=== PATIENT | female | born 1940 | race Caucasian/White ===

== ENCOUNTER 2016-10-07 07:51 | Inpatient (IN) | payer OTHER, MEDICARE ==
--- NOTE | 2016-10-06 15:34 | HP ---
DATE OF ADMISSION: 10/07/2016 DATE OF SURGERY: 10/08/2016 DATE OF DICTATION: 09/29/2016 REASON FOR ADMISSION: Left colon mass, suspect carcinoma. BRIEF HISTORY: This is a 76-year-old female who in July underwent a colonoscopy for microcytic anemia. At the time of colonoscopy, she was noted to have a large mass in the proximal sigmoid/left colon. The mass was approximately 30 cm. Due to the size of this mass and near obstructing nature, the remainder of the colon is not examined, and the procedure was terminated at this level. Biopsies were taken, biopsies consistent with tubulovillous adenoma. No carcinoma identified. Due to the microcytic anemia, she also underwent an upper endoscopy that was essentially unremarkable except for gastritis. A CAT scan was performed. The CT demonstrated a 4.5-cm mass in the sigmoid/left colon suggestive of a carcinoma with compression onto the bladder and invasion into the bladder cannot be entirely ruled out. There is no obvious intestinal obstruction. The CT demonstrated no obvious findings in the liver. The CT was performed at [facility] in [address], and CT Was read by Dr. Kaia Dumont. The colonoscopy was performed by Dr. Saul Bonds. Patient has a family history of colon cancer (mom at age 92). She has had approximately 20 pounds weight loss over the past 6 months, slow progression. PAST MEDICAL HISTORY: Significant for coronary artery disease, arthritic changes, back problems, anxiety disorder, hypertension. PAST SURGICAL HISTORY: Kyphoplasty in 2010. ALLERGIES: None. MEDICATION: Crestor, ramipril, metoprolol 25 mg daily, baby aspirin, ibuprofen, alprazolam 0.25 mg on a p.r.n. basis. SOCIAL HISTORY: Patient does not smoke nor drink. PHYSICAL EXAMINATION: Abdomen: Soft. Nontender. Nondistended. No obvious abdominal scars. Lungs: Clear. Heart: Regular rhythm. IMPRESSION/PLAN: Colonic mass: This is a 76-year-old female who underwent colonoscopy for microcytic anemia. Upper endoscopy is unremarkable. Colonoscopy demonstrated a mass at approximately 30 to 35 cm from the anal verge. Biopsies and brushings were taken and consistent with tubulovillous adenoma. CT scan confirmed this finding with possible invasion into the dome of the bladder. The area was not tattooed at the time of surgery. Remainder of the colon was not evaluated. The patient and family and myself had a very long conversation regarding the possibility of carcinoma (in a tubulovillous adenoma there is at least a 40% chance). We have also discussed the possibility if this was carcinoma, of having a synchronous tumor of approximately 7% chance in the remainder of the colon. They understand this, and given the fact that she is partially obstructed, at least endoscopically, the pros of a barium enema are outweighed by the possibility of barium and converting this to a complete large bowel obstruction; therefore, they did not wish to have the remainder of the colon evaluated at this time and understand the 7% synchronicity chance for carcinoma if this is a cancer. Given the fact that the patient is partially obstructed endoscopically, I have also planned to prep her very slowly over a course of 4 days. The day prior to surgery, the patient will be admitted for a formal bowel prep and IV hydration in the hospital. The indications, alternatives, complications of procedure have been discussed at length. Questions have been answered. Will plan to obtain written consent on the day of surgery. Rishi MATHEWS [id number] cc: Jaylen Quintana M.D., [address] [place] [phone] ) cc: Nicko Samaniego M.D. [facility]
[2016-10-07 10:34] LABS: MCH 30.1 pg (25.7-33.7); MCHC 33.7 g/dl (32.0-36.0); MEAN CELL VOLUME 89.3 fl (80-96); PLATELET COUNT 311 K/MM3 (134-434); RDW 13.5 % (11.6-15.6); WHITE BLOOD COUNT 6.2 K/mm3 (4.0-10.0)
[2016-10-07] MEDS ORDERED: ERTAPENEM SODIUM 1 GM in SODIUM CHLORIDE 50 ML IVPB ONE (10:45)
[2016-10-07 10:50] LABS: ALBUMIN 3.4 g/dl (3.4-5.0); ANION GAP 8 (8-16); CALCIUM 9.3 mg/dL (8.5-10.1); CO2 27 mmol/L (21-32); CREATININE 0.6 mg/dL (0.55-1.02); GLUCOSE,RANDOM 94 mg/dL (74-106); SGOT/AST 23 U/L (15-37); SGPT/ALT 24 U/L (12-78)
[2016-10-07 10:52] LABS: ALK PHOS 72 U/L (45-117); BILIRUBIN,TOTAL 0.4 mg/dL (0.2-1.0); TOT PROT 6.3 g/dl (6.4-8.2)
[2016-10-07] MEDS ORDERED: PEG 3350/NA SULF BICARB CL/KCL 4000 ML SOLN.RECON PO ONE (11:00)
[2016-10-07 11:33] VITALS: BMI 20.1
[2016-10-07] MEDS: LACTATED RINGERS SOLUTION 1,000 ML IV SCH (11:54)
[2016-10-08] MEDS: LACTATED RINGERS SOLUTION 1,000 ML IV SCH (00:39)
[2016-10-08] MEDS ORDERED: PT OWN MED DRAWER 7, Y5N ONE (07:39)
[2016-10-08] MEDS ORDERED: MIDAZOLAM HCL 2 MG/2 ML SINGLE DOSE VIAL ONE ×2 (07:40→11:27)
[2016-10-08] MEDS ORDERED: ROCURONIUM BROMIDE 50 MG/5 ML VIAL ONE ×2 (07:41→09:16)
[2016-10-08] MEDS ORDERED: PROPOFOL 20 ML ONE (07:41)
[2016-10-08] MEDS ORDERED: ERTAPENEM SODIUM 1 GM in SODIUM CHLORIDE 50 ML IVPB ONE (08:00)
[2016-10-08] MEDS ORDERED: GlUCAGON HUMAN RECOMBINANT 1 MG/VIAL ONE (08:13)
[2016-10-08] MEDS ORDERED: ERTAPENEM SODIUM 1 GM/50 ML PRE-DOCKED IVPB ONE (08:27)
[2016-10-08] MEDS ORDERED: DEXAMETHASONE SOD PHOSPHATE 4 MG/1 ML VIAL ONE (10:00)
[2016-10-08] MEDS ORDERED: ASPIRIN 81 MG CHEWABLE TABLETS PO SCH (10:00)
[2016-10-08] MEDS ORDERED: METOPROLOL TARTRATE 50 MG TABLET (FP) PO SCH (10:00)
[2016-10-08] MEDS ORDERED: RAMIPRIL 2.5 MG CAPSULE (FP) PO SCH (10:00)
[2016-10-08] MEDS ORDERED: METOPROLOL TARTRATE 5 MG/5 ML VIAL ONE (10:01)
[2016-10-08] MEDS ORDERED: LIDOCAINE HCL 2% JELLY (5 ML/TUBE) ONE (10:01)
[2016-10-08] MEDS ORDERED: LIDOCAINE HCL/PF 2% SDV 5ML VIAL ONE (10:01)
[2016-10-08] MEDS ORDERED: GLYCOPYRROLATE 0.2 MG/1 ML VIAL ONE ×2 (10:01→11:46)
[2016-10-08] MEDS ORDERED: ePHEDrine SULFATE 50 MG/1 ML AMPULE ONE (10:58)
[2016-10-08] MEDS ORDERED: NEOSTIGMINE METHYLSULFATE 0.5 MG/ML - 10 ML MDV ONE (11:46)
[2016-10-08] MEDS ORDERED: oxyCODONE HCL 5 MG TABLET PO PRN (12:05)
[2016-10-08] MEDS ORDERED: D5-1/2NS+20 MEQ KCL - 1,000 ML IV SCH (12:15)
[2016-10-08] MEDS ORDERED: ESMOLOL HCL 10 ML ONE (12:48)
[2016-10-08] MEDS ORDERED: ONDANSETRON 4 MG/2 ML VIAL IVPUSH PRN (14:47)
[2016-10-08] MEDS ORDERED: ALBUTEROL SO4 0.083% IH SOL 2.5 MG/3 ML VIAL.NEB. NEB PRN (14:54)
--- NOTE | 2016-10-08 17:29 | OP ---
DATE OF OPERATION: DATE OF DICTATION: 10/08/2016 PREOPERATIVE DIAGNOSIS: Colon mass. POSTOPERATIVE DIAGNOSIS: Colon mass. PROCEDURE: Cystoscopy left ureteral stent placement preoperatively for laparoscopic colon resection. INDICATION: Patient is a 76-year-old female with large colon mass adherent to left lateral wall bladder. I was asked to put left ureteral stent in preoperatively by Dr. Zimmer. This was discussed with the patient preoperatively and informed consent was given. DESCRIPTION OF PROCEDURE: Patient was brought to OR. After general anesthesia was established, placed in the dorsal lithotomy position. The cystoscope was introduced without difficulty and the bladder was visualized. There was some erythema of the left lateral wall of the bladder. The bilateral ureteral orifices were seen in normal anatomic position. Attention turned to left ureteral orifice, intubated with ureteral catheter contrast, retrograde pyelogram, no hydronephrosis noted. A ureteral catheter went up into the renal pelvis and the cystoscope was then removed, Hernandez catheter then placed, and then open-end ureteral catheter was secured to the Hernandez catheter for preoperative left ureteral identification. At this point then I un-scrubbed and Dr. Zimmer scrubbed in for his part of the procedure. ASHUTOSH SANDHU M.D. [id number]
[2016-10-08] MEDS: morphine CARPU-JECT 4 MG/1 ML DISP.SYRIN IVPB PRN ×2 (17:53→22:15)
[2016-10-08 18:46] LABS: MCH 30.1 pg (25.7-33.7); MCHC 33.6 g/dl (32.0-36.0); MEAN CELL VOLUME 89.7 fl (80-96); MEAN PLT VOLUME 8.5 fl (7.5-11.1); PLATELET COUNT 308 K/MM3 (134-434); RDW 13.8 % (11.6-15.6); WHITE BLOOD COUNT 12.2 K/mm3 (4.0-10.0)
[2016-10-08 19:11] LABS: ANION GAP 8 (8-16); CALCIUM 8.4 mg/dL (8.5-10.1); CO2 27 mmol/L (21-32); GLUCOSE,RANDOM 163 mg/dL (74-106)
[2016-10-08 19:12] LABS: CREATININE 0.5 mg/dL (0.55-1.02)
--- NOTE | 2016-10-08 20:30 | CONSULT ---
Consult Consult Specialty:: Pulmonary/ Critical Care Referred by:: Nahid Zimmer Reason for Consultation:: s/p colon resection, frontal colectomy - History of Present Illness Chief Complaint: s/p colon resection, frontal colectomy History of Present Illness: HPI: 76 y/o woman who was recently diagnosed with large colon mass now admitted to ICU post-op ureteral stent placement and laparoscopic colon resection. Briefly, pt was undergoing work up for microcytic anemia and had colonoscopy earlier this month. During the procedure she was noted to have a large mass ( 30cm) which was partially obstructive and the exam was terminated. Biopsies were taken, consistent with tubulovillous adenoma. She also underwent upper endoscopy which was essentially unremarkable other than gastritis. CT demonstrated a 4.5cm mass in the sigmoid/ left colon suggestive of a carcinoma with compression onto the bladder and concern for invasion into the bladder. Pt presented today for surgical intervention. Pt underwent L ureteral stent placement pre-operatively by Dr. Allen and subsequently laparoscopic colon resection by Dr. Zimmer. Operative course was unremarkable and pt was discharged to PACU where she was extubated to NRB. She was admitted to ICU for further monitoring. Active Medications Albuterol Sulfate (Ventolin 0.083% Nebulizer Soln -) 1 amp NEB Q4H PRN PRN Reason: SHORT OF BREATH/WHEEZING Last Admin: 10/08/16 15:10 Dose: 1 amp Aspirin (Asa -) 81 mg PO DAILY [facility] Enoxaparin Sodium (Lovenox -) 40 mg SQ DAILY [facility] Fentanyl (Sublimaze Injection -) 50 mcg IVPUSH [id number] PRN PRN Reason: PAIN Stop: 10/11/16 14:48 Ertapenem 1 gm/ Sodium (Chloride) 50 mls @ 50 mls/hr IVPB ONCE ONE PRN Reason: Protocol Stop: 10/09/16 06:59 Pantoprazole Sodium 40 mg/ (Sodium Chloride) 100 mls @ 200 mls/hr IVPB DAILY [facility] Potassium Chloride/Dextrose/Sod Cl (D5-1/2ns+20 Meq Kcl -) 1,000 mls @ 100 mls/ hr IV ASDIR JOHN Last Admin: 10/08/16 17:45 Dose: 100 mls/hr Metoprolol Tartrate (Lopressor -) 50 mg PO DAILY [facility] Morphine Sulfate (Morphine Injection -) 4 mg IVPB Q3H PRN PRN Reason: MODERATE PAIN Last Admin: 10/08/16 17:53 Dose: 4 mg Oxycodone HCl (Roxicodone -) 7.5 mg PO Q4H PRN PRN Reason: PAIN Ramipril (Altace -) 2.5 mg PO DAILY JOHN - History Source History Provided By: Patient, Medical Record Limitations to Obtaining History: No Limitations - Past Medical History Cardio/Vascular: Yes: CAD, HTN ...: No Psych: Yes: Anxiety Musculoskeletal: Yes: Other (back pain, arthritis) Rheumatology: Yes: Other - Past Surgical History Additional Surgical History: kyphoplasty 2010 - Alcohol/Substance Use Hx Alcohol Use: No - Smoking History Smoking history: Former smoker Have you smoked in the past 12 months: No If you are a former smoker, when did you quit?: quit 20 yrs ago Home Medications - Allergies Allergies/Adverse Reactions: Allergies Allergy/AdvReac Type Severity Reaction Status Date / Time No Known Allergies Allergy Verified 10/07/16 10:32 - Home Medications Home Medications: Ambulatory Orders Alprazolam 0.25 tab PO PRN 10/07/16 Aspirin [Asya Chewable Aspirin] 10/07/16 Ibuprofen 10/07/16 Metoprolol Succinate 50 tab PO DAILY 10/07/16 Metoprolol Tartrate 10/07/16 Ramipril 2.5 cap PO DAILY 10/07/16 Rosuvastatin [Crestor -] 20 mg PO DAILY 10/07/16 Family Disease History - Family Disease History Family Disease History: Other: Mother (colon cancer) Review of Systems - Review of Systems Constitutional: reports: Unintentional Wgt. Loss Physical Exam Vital Signs: Vital Signs Temperature 98.9 F 10/08/16 20:00 Pulse Rate 97 H 10/08/16 20:00 Respiratory Rate 13 10/08/16 20:00 Blood Pressure 103/58 10/08/16 20:00 O2 Sat by Pulse Oximetry (%) 95 10/08/16 19:30 Constitutional: Yes: No Distress, Calm Eyes: Yes: Conjunctiva Clear, PERRL HENT: Yes: Normocephalic Cardiovascular: Yes: Regular Rate and Rhythm, S1, S2, Other (mild tachycardia). No: Gallop, Murmur, Rub Respiratory: Yes: CTA Bilaterally, Other (faint basilar crackles). No: Accessory Muscle Use Gastrointestinal: Yes: Soft (abdominal incisions c/d/i), Hypoactive Bowel Sounds , Tenderness Extremities: Yes: WNL Edema: No Peripheral Pulses WNL: Yes Integumentary: Yes: WNL Wound/Incision: Yes: Clean/Dry, Well Approximated, Sutures Intact, Open to air, Dressing Dry and Intact Neurological: Yes: WNL, Cran Nerves II-XII Intact ...Motor Strength: WNL Psychiatric: Yes: WNL Labs: CBC, BMP 10/08/16 18:15 10/08/16 18:15 Problem List - Problems (1) S/P colon resection Code(s): Z90.49 - ACQUIRED ABSENCE OF OTHER SPECIFIED PARTS OF DIGESTIVE TRACT Assessment/Plan Assessment/ Plan: 76 y/o woman who was recently diagnosed with large colon mass now admitted to ICU post-op ureteral stent placement and laparoscopic colon resection. -post-op monitoring -pain control as needed -wound care -s/p monse-op erdapenem - monitor for sxs infection -O2 via NRB- wean as tolerated -monitor respiratory status -continue IVF -continue anti-HTN -continue ASA, statin -ppx: lovenox, PPI Sharla MURPHY CC time: 35 mins
[2016-10-09] MEDS: morphine CARPU-JECT 4 MG/1 ML DISP.SYRIN IVPB PRN ×6 (02:36→21:35)
[2016-10-09 05:47] LABS: MCH 29.7 pg (25.7-33.7); MEAN PLT VOLUME 7.9 fl (7.5-11.1); PLATELET COUNT 310 K/MM3 (134-434); RDW 13.8 % (11.6-15.6)
[2016-10-09] MEDS ORDERED: PT OWN MED DRAWER 7, Y5N ONE (05:52)
[2016-10-09] MEDS ORDERED: ERTAPENEM SODIUM 1 GM in SODIUM CHLORIDE 50 ML IVPB ONE (06:00)
[2016-10-09 06:11] LABS: ANION GAP 7 (8-16); CALCIUM 8.5 mg/dL (8.5-10.1); CO2 28 mmol/L (21-32); CREATININE 0.5 mg/dL (0.55-1.02); GLUCOSE,RANDOM 126 mg/dL (74-106); MAGNESIUM 1.8 mg/dL (1.8-2.4); PHOSPHOROUS 3.5 mg/dL (2.5-4.9)
[2016-10-09] MEDS: METOPROLOL TARTRATE 50 MG TABLET (FP) PO SCH (09:05)
[2016-10-09] MEDS: ASPIRIN 81 MG CHEWABLE TABLETS PO SCH (09:05)
[2016-10-09] MEDS: RAMIPRIL 2.5 MG CAPSULE (FP) PO SCH (09:05)
[2016-10-09] MEDS: PANTOPRAZOLE SODIUM 100 ML IVPB SCH (09:10)
--- NOTE | 2016-10-09 10:36 | PN ---
Progress Note (short form) - Note Progress Note: Anesthesia postop note 76 y/o F with multiple medical problems, s/p GA for Laparoscopic colectomy/ anastomosis, cystoscopy/stents Slow to recover at at end of the procedure, extubated in recovery room, respiratory status felt to be inadequate for discharging patient to regular floor. Patient admitted to ICU overnight for close monitoring. POD#1, vss overnight, now on nasal cannula, O2sat low 90's, hemodynamically stable, aaox3, some lower abdomen discomfort. Encouraged to use incentive spirometry. Further care per ICU/surgery.
--- NOTE | 2016-10-09 11:43 | PN ---
Teaching Attending Note Name of Resident: Raheem Canales ATTENDING PHYSICIAN STATEMENT I saw and evaluated the patient. I reviewed the resident's note and discussed the case with the resident. I agree with the resident's findings and plan as documented. SUBJECTIVE: Patient seen and examined in the ICU. Awake and alert. Mildly tachypneic at rest on 6 L NC O2 (was on 100% yesterday). Reports mild abdominal discomfort. (+) flatus. No CP . Some dry cough. Intake & Output 10/06/16 10/07/16 10/08/16 10/09/16 23:59 23:59 23:59 23:59 Intake Total 800 3575 1250 Output Total 1105 475 Balance 800 2470 775 Weight 121 lb 131 lb Last Vital Signs Temp Pulse Resp BP Pulse Ox 98.0 F 90 18 90/47 90 L 10/09/16 10:00 10/09/16 10:00 10/09/16 10:00 10/09/16 10:00 10/09/16 08:00 Active Medications Albuterol Sulfate (Ventolin 0.083% Nebulizer Soln -) 1 amp NEB Q4H PRN PRN Reason: SHORT OF BREATH/WHEEZING Last Admin: 10/08/16 15:10 Dose: 1 amp Aspirin (Asa -) 81 mg PO DAILY [facility] Last Admin: 10/09/16 09:05 Dose: Not Given Enoxaparin Sodium (Lovenox -) 40 mg SQ DAILY [facility] Fentanyl (Sublimaze Injection -) 50 mcg IVPUSH [id number] PRN PRN Reason: PAIN Stop: 10/11/16 14:48 Pantoprazole Sodium (Protonix 40mg Ivpb (Pre-Docked)) 100 mls @ 200 mls/hr IVPB DAILY [facility] Last Admin: 10/09/16 09:10 Dose: 200 mls/hr Metoprolol Tartrate (Lopressor -) 50 mg PO DAILY [facility] Last Admin: 10/09/16 09:05 Dose: Not Given Morphine Sulfate (Morphine Injection -) 4 mg IVPB Q3H PRN PRN Reason: MODERATE PAIN Last Admin: 10/09/16 09:29 Dose: 4 mg Oxycodone HCl (Roxicodone -) 7.5 mg PO Q4H PRN PRN Reason: PAIN Ramipril (Altace -) 2.5 mg PO DAILY [facility] Last Admin: 10/09/16 09:05 Dose: Not Given Constitutional: Yes: Awake and alert, mildly tachypenic at rest Eyes: Yes: Conjunctiva Clear, PERRL HENT: Yes: Normocephalic Cardiovascular: Yes: Regular Rate and Rhythm, S1, S2, Other (mild tachycardia). No: Gallop, Murmur, Rub Respiratory: Yes: scattered basilar rhonchi. No: Accessory Muscle Use Gastrointestinal: Yes: Soft (abdominal incisions c/d/i), Hypoactive Bowel Sounds , Tenderness Extremities: Yes: WNL Edema: No Peripheral Pulses WNL: Yes Integumentary: Yes: WNL Wound/Incision: Yes: Clean/Dry, Well Approximated, Sutures Intact, Open to air, Dressing Dry and Intact Neurological: Yes: Non-focal ...Motor Strength: WNL Psychiatric: Yes: WNL Labs: Laboratory Results - last 24 hr 10/08/16 10/08/16 10/09/16 18:15 18:15 05:10 WBC 12.2 H D 9.0 RBC 3.72 3.67 Hgb 11.2 10.9 Hct 33.4 33.0 MCV 89.7 90.0 MCH 30.1 29.7 MCHC 33.6 33.0 RDW 13.8 13.8 Plt Count 308 310 MPV 8.5 7.9 Sodium 141 Potassium 3.8 Chloride 106 Carbon Dioxide 27 Anion Gap 8 BUN 4 L Creatinine 0.5 L Random Glucose 163 H D Calcium 8.4 L Phosphorus Magnesium 10/09/16 05:10 WBC RBC Hgb Hct MCV MCH MCHC RDW Plt Count MPV Sodium 141 Potassium 4.0 Chloride 106 Carbon Dioxide 28 Anion Gap 7 L BUN 5 L D Creatinine 0.5 L Random Glucose 126 H D Calcium 8.5 Phosphorus 3.5 Magnesium 1.8 Problem List - Problems (1) S/P colon resection Code(s): Z90.49 - ACQUIRED ABSENCE OF OTHER SPECIFIED PARTS OF DIGESTIVE TRACT Assessment/Plan Mild Pulmonary Vascular Congestion Colonic Mass -> CA S/P Ureteral stent placement S/P Laparoscopic colon resection. -Check CXR -Pain control as needed -Wound care -Currently monitoring off ABX -O2 as needed to maintain saturation -Decrease IVF -ASA -Lovenox -PPI Dr Romero Critical Care Total Critical Care Time (in minutes): 35 Critical Care Statement: The care of this patient involved high complexity decision making to prevent further life threatening deterioration of the patient 's condition and/or to evalute & treat vital organ system(s) failure or risk of failure.
[2016-10-09] MEDS: D5-1/2NS+20 MEQ KCL - 1,000 ML IV SCH (12:00)
--- NOTE | 2016-10-09 12:17 | OP ---
DATE OF OPERATION: 10/08/2016 PREOPERATIVE DIAGNOSIS: Sigmoid mass, suspect colon cancer with invasion into the bladder, abdominal wall, and uterus. POSTOPERATIVE DIAGNOSIS: Sigmoid mass, suspect colon cancer with invasion into the bladder, abdominal wall, and uterus. PROCEDURE: Laparoscopic low anterior resection, laparoscopic resection of portion of bladder and uterus, laparoscopic resection of portion of abdominal wall, splenic flexure takedown, anal dilatation, rigid sigmoidoscopy, peritoneal lavage. SURGEON: Nahid Zimmer MD FAMILY SERVICE CASEWORKER: Petey Bailey DO ANESTHESIA: Vandana Flaherty MD (general). ESTIMATED BLOOD LOSS: Minimal. SPECIMEN: Rectosigmoid portion of bladder, uterus, and abdominal wall. MEDICAL COMORBIDITIES: Ischemic heart disease; colonic mass, suspect cancer; hypercholesterolemia; mitral valve prolapse syndrome; iron deficiency anemia. INDICATIONS FOR PROCEDURE: This is a 76-year-old female who underwent colonoscopy for microcytic anemia. At the time of scoping, she was noted to have an untraversable mass at [address] scan was performed. It demonstrated a large, 5 -cm mass consistent with colonoscopic findings. The mass looks like it invades the bladder as well. There is no obvious metastatic disease to liver. The patient is here today for the above procedure. Given the CT findings, I sent the patient to see a urologist who underwent preoperative cystoscopy. Cystoscopy demonstrated no obvious invasion of tumor into the dome of the bladder. There was some mild erythema in the upper corner, lateral wall of the left side of the bladder. The urologist also placed stents today on the left side. DESCRIPTION OF PROCEDURE: Patient identified and appropriately positioned on the operating room table. After placement of general anesthesia, the abdomen prepped and draped in the usual sterile fashion with ChloraPrep. The patient was placed in the lithotomy position, and the urologist placed a stent into the left ureter. Please refer to his dictation. Once this was completed, the patient then appropriately positioned for the low anterior resection. The abdomen prepped with ChloraPrep. The perineum prepped with Betadine. A supraumbilical incision was made and deepened through the subcutaneous tissue. The fascia was divided sharply, peritoneum incised, and the abdomen was entered. Upon entering the abdomen, a Veress needle was placed under direct vision, followed by an 11-mm port. The remaining ports placed under direct vision as well. The patient was placed into a mild Trendelenburg position for the duration of the operation. There was a large mass identified in the mid-sigmoid/proximal rectum that was adherent to the lateral abdominal wall, bladder as well as what appeared to be the uterus and tube and ovary. There were no obvious peritoneal implants. The liver appeared to be grossly within normal limits. However, the posterior aspects of the liver were not able to be evaluated laparoscopically, and also the central portion obviously could not be evaluated. The pelvic brim identified. The sigmoid vessels identified in the fat. The sigmoid vessels were circumferentially isolated and taken with LigaSure device. Four weldsplaced prior to complete division. Once this was accomplished, the retroperitoneum was then subsequently opened, and in doing so, the ovarian vessels as well as the left ureter identified and the iliac artery. Those retroperitoneal structures were left in the retroperitoneum, and the plane was not violated. The peritoneal reflection medially on the left colon was then divided sharply. The posterior retroperitoneal side of the colon was lifted off the retroperitoneum with blunt dissection as well up against the left gutter. At this point, the colon was rolled medially, and the white line of Toldt was divided sharply and the 2 planes connected. This was then taken down towards the level of the pelvis, and in doing so, there was obvious tumor that was adherent to the left anterior abdominal wall. The peritoneum along the abdominal wall where it was affixed was divided en bloc along with the specimen to be removed, and then, the dissection ensued more inferiorly. The peritoneal reflection on the patient's left side was identified , and the tube and ovary were pulled into this mass, but there was no obvious infiltration on the tube and ovary, and therefore, the tube and ovary were sharply off the tumor mass itself. The mass had clearly grown into the portion of the corner of the uterus on the left as well as the anterior surface of the bladder laterally. The peritoneum along the bladder was then scored, and a portion of the bladder was resected en bloc along with the tumor specimen. The piece of bladder that was removed went beyond the actual tumor invasion. Then, coming across the uterus, it was done in a similar fashion, and across the uterus, the uterus was sharply divided and cauterized as needed. Once the tumor was completely freed and an en bloc resection of portion of the abdominal wall/uterus was performed, attention was now focused to closure and oversewing of the uterine horn. This was done with a 2-0 V-Loc dissolvable suture. The mucosa of the bladder was not violated. The muscular layer of the bladder was then oversewn with interrupted 2-0 chromic sutures. Once the bladder and uterus was reconstructed, attention now focused to performing the actual resection of the tumor. The peritoneal reflection on the patient's right side was scored, and the preperitoneal space entered, and the rectum was then mobilized out of the preperitoneal space with blunt dissection. The superior hemorrhoidal/rectal arteries were divided with the cautery. This allowed adequate distal margin. The middle rectals did not need to be sacrificed. The fat at the site of distal transection was visualized, and the fat in the posterior aspect of the mesorectum was divided with the cautery. Next, the colon was then freed off the white line of Toldt sharply, and in doing so, the left colon was brought down to the pelvis. However, to perform a tension-free anastomosis, the splenic flexure required takedown. The splenic flexure was taken down in the standard fashion with the cautery and LigaSure as needed. The renocolic, splenocolic, and gastrocolic ligaments were divided. Next, there was still some hang-up of the left colon to be brought down, and the peritoneal reflection overlying the GIACOMO on either side was completely divided. This allowed the GIACOMO to still be left intact and the left colon be mobilized as distal as possible to perform a tension-free anastomosis. Once blood supply and attachments were adequately mobilized, attention was now brought to bringing the specimen out. The 5-mm trocar site suprapubically was removed. The incision had to be lengthened significantly to remove this large bulky tumor that was at least 5-6 cm. The fascia of the rectus muscle was divided transversely, and using the Pfannenstiel technique, the peritoneum identified, incised, and the abdomen again entered through this incision. A wound protector placed and the specimen was brought out through this incision. At the proximal line, the resection was chosen to be several inches, at least 5 inches, above the actual tumor. A colotomy proximally was made, and a 28 anvil placed under direct vision. The colon proximally was then subsequently stapled, and under direct vision, the anvil spike was brought through the transverse aspect of the staple line. The anvil was sewn with a 3-0 Prolene pursestring suture. The spike subsequently removed. The bowel returned to its anatomic position. The surgeon and exceptional children teacher assistant changed gloves. The exceptional children teacher assistant now went below to perform an anal dilatation to 3 fingerbreadths. The rectal stump was serially dilated up to from small, medium, and large, and under direct vision, a stapler was then placed as well. The stapler brought to the rectal stump staple line, spike through the central aspect of the staple line, the 2 ends mated under direct vision, and the stapler fired. The exceptional children teacher assistant reported good donuts on both sides. The distal donut was sent for an additional distal margin. The staple line grossly was intact. Grossly, the bowel was pink proximal and distal to the anastomosis, and there was no gross staple breaks. At this point, the patient was injected with cyanine green, and using the pinpoint system, the anastomosis was checked. There was good blood supply to the anastomosis and on either side of the anastomosis. There was no evidence of ischemia using the pinpoint. Next, the pelvis was irrigated. The irrigant retrieved. The operative field was hemostatic. The exceptional children teacher assistant performed a limited rigid sigmoidoscopy by insufflating air. The staple line submerged, and there were no air leaks. The staple line was tested on 3 separate accounts. There were no air leaks identified. The exceptional children teacher assistant performed a rigid sigmoidoscopy to the anastomosis. The anastomosis was pink on either side. There were no buckner staple breaks. Next, the ports removed. Port sites were removed under direct vision and noted to be hemostatic. A 10 flat NATHAN was placed and brought through the left lower quadrant port site. The fascia at the 12 port site and supraumbilical was reapproximated with interrupted 0 Vicryl suture. All skin closed with jovani, followed by Dermabond. At the conclusion of this case, sponge and needle counts were correct. ATTESTATION: A brief operative note handwritten on the preprinted form. [facility] will be queried prior to giving narcotics. Rishi MATHEWS [id number] CC: Nicko MD Servando Samaniego MD Leon Landau, MD Dr. DeLuca [facility]ITALK[facility]
--- NOTE | 2016-10-09 13:25 | PN ---
Progress Note (short form) - Note Progress Note: surgery pt seen and examined. feels well. events noted. spent night in ICU with lethargy and shortness of breath. ivf dropped to 42 per hour and felt to have mild fluid overload. afebrile abd- soft, mild distension, incision clean, kostas serous Laboratory Tests 10/09/16 05:10 WBC 9.0 Hgb 10.9 Plt Count 310 A/P 1) Pod#1- npo, ivf per critical care, cont kostas, cont hardy, cont stent 2) prophylaxis- finish invanz, cont protonix, lovenox, oob, spirometer 3) htn/cad- on home meds-- ramapril, altace, asa 4) likely colon ca-follow path 5) bladder involvement of tumor- cont hardy and stent per gu, may need assessment prior to removal
[2016-10-09] MEDS: ENOXAPARIN NA (PORCINE) 40 MG/0.4 ML DISP.SYRIN SQ SCH (13:59)
--- NOTE | 2016-10-09 14:31 | PN ---
Physical Exam: SUBJECTIVE: Pt stated her pain has been mostly under control. Had shortness of breath briefly. No fever, chills, chest pain, n/v, urinary or bowel symptom. OBJECTIVE: Vital Signs Period Temp Pulse Resp BP Sys/Garland Pulse Ox Last 24 Hr 98.0 F-98.9 F 79-106 12-20 86-121/42-71 90-96 GENERAL: AAO x 3, and fully oriented, in no acute distress. LUNGS: Decreased breath sounds bilaterally HEART: Tachycardic, S1, S2 without murmur, rub or gallop. ABDOMEN: Soft, diffusely tender, mildly distended, normoactive bowel sounds, no guarding, no rebound; dressing in RLQ, clean horizontal surgical jovani, and lap scars EXTREMITIES: no edema. CBCD WBC 9.0 K/mm3 (4.0-10.0) 10/09/16 05:10 RBC 3.67 M/mm3 (3.60-5.2) 10/09/16 05:10 Hgb 10.9 GM/dL (10.7-15.3) 10/09/16 05:10 Hct 33.0 % (32.4-45.2) 10/09/16 05:10 MCV 90.0 fl (80-96) 10/09/16 05:10 MCHC 33.0 g/dl (32.0-36.0) 10/09/16 05:10 RDW 13.8 % (11.6-15.6) 10/09/16 05:10 Plt Count 310 K/MM3 (134-434) 10/09/16 05:10 MPV 7.9 fl (7.5-11.1) 10/09/16 05:10 CMP Sodium 141 mmol/L (136-145) 10/09/16 05:10 Potassium 4.0 mmol/L (3.5-5.1) 10/09/16 05:10 Chloride 106 mmol/L (98-107) 10/09/16 05:10 Carbon Dioxide 28 mmol/L (21-32) 10/09/16 05:10 Anion Gap 7 (8-16) L 10/09/16 05:10 BUN 5 mg/dL (7-18) L D 10/09/16 05:10 Creatinine 0.5 mg/dL (0.55-1.02) L 10/09/16 05:10 Creat Clearance w eGFR > 60 (>60) 10/07/16 10:00 Calcium 8.5 mg/dL (8.5-10.1) 10/09/16 05:10 Total Bilirubin 0.4 mg/dL (0.2-1.0) 10/07/16 10:00 AST 23 U/L (15-37) 10/07/16 10:00 ALT 24 U/L (12-78) 10/07/16 10:00 Alkaline Phosphatase 72 U/L (45-117) 10/07/16 10:00 Total Protein 6.3 g/dl (6.4-8.2) L 10/07/16 10:00 Albumin 3.4 g/dl (3.4-5.0) 10/07/16 10:00 Intake & Output 10/06/16 10/07/16 10/08/16 10/09/16 23:59 23:59 23:59 23:59 Intake Total 800 3575 1950 Output Total 1105 870 Balance 800 2470 1080 Weight 54.885 kg 59.421 kg IMAGING CXR on 10/09: small pleural effusion ASSESSMENT/PLAN: 76 yo F s/p colon mass and colon resection and post-op ureteral stent placement admitted to the ICU for post-op management. 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 current pain management - Incentive spirometer - OOB - NPO for now FEN - D5+1/2NS+20meg at 42ml/hr - Normal lytes - NPO Prophylaxis - DVT: On lovenox (AM dose held due to risk of bleeding post-op) - GI: protonix Dispo - Cont. to monitor in ICU Visit type - Emergency Visit Emergency Visit: No - New Patient This patient is new to me today: Yes Date on this admission: 10/10/16 - Critical Care Critical Care patient: Yes Total Critical Care Time (in minutes): 25
[2016-10-10] MEDS: morphine CARPU-JECT 4 MG/1 ML DISP.SYRIN IVPB PRN ×3 (02:08→19:39)
[2016-10-10 05:50] LABS: MCH 30.2 pg (25.7-33.7); MCHC 33.7 g/dl (32.0-36.0); MEAN CELL VOLUME 89.7 fl (80-96); MEAN PLT VOLUME 8.5 fl (7.5-11.1); PLATELET COUNT 257 K/MM3 (134-434); WHITE BLOOD COUNT 6.9 K/mm3 (4.0-10.0)
[2016-10-10 06:12] LABS: ANION GAP 4 (8-16); CALCIUM 8.3 mg/dL (8.5-10.1); CO2 32 mmol/L (21-32); CREATININE 0.4 mg/dL (0.55-1.02); GLUCOSE,RANDOM 105 mg/dL (74-106); MAGNESIUM 1.8 mg/dL (1.8-2.4)
--- NOTE | 2016-10-10 08:47 | PN ---
Progress Note (short form) - Note Progress Note: Patient seen and examined in the ICU. Awake and alert. Less tachypneic at rest on NC O2. Less abdominal discomfort. No subjective flatus or BM. No CP . Some dry cough. Intake & Output 10/07/16 10/08/16 10/09/16 10/10/16 23:59 23:59 23:59 23:59 Intake Total 800 3575 2504 344 Output Total 1105 1530 725 Balance 800 2470 974 -381 Weight 121 lb 131 lb 126 lb 9 oz Last Vital Signs Temp Pulse Resp BP Pulse Ox 97.7 F 96 H 19 111/64 97 10/10/16 08:00 10/10/16 08:00 10/10/16 08:00 10/10/16 08:00 10/10/16 08:00 Active Medications Albuterol Sulfate (Ventolin 0.083% Nebulizer Soln -) 1 amp NEB Q4H PRN PRN Reason: SHORT OF BREATH/WHEEZING Last Admin: 10/08/16 15:10 Dose: 1 amp Aspirin (Asa -) 81 mg PO DAILY [facility] Last Admin: 10/09/16 09:05 Dose: Not Given Enoxaparin Sodium (Lovenox -) 40 mg SQ DAILY [facility] Last Admin: 10/09/16 13:59 Dose: 40 mg Fentanyl (Sublimaze Injection -) 50 mcg IVPUSH [id number] PRN PRN Reason: PAIN Stop: 10/11/16 14:48 Pantoprazole Sodium (Protonix 40mg Ivpb (Pre-Docked)) 100 mls @ 200 mls/hr IVPB DAILY [facility] Last Admin: 10/09/16 09:10 Dose: 200 mls/hr Potassium Chloride/Dextrose/Sod Cl (D5-1/2ns+20 Meq Kcl -) 1,000 mls @ 42 mls/ hr IV ASDIR [facility] Last Admin: 10/09/16 12:00 Dose: 42 mls/hr Metoprolol Tartrate (Lopressor -) 50 mg PO DAILY [facility] Last Admin: 10/09/16 09:05 Dose: Not Given Morphine Sulfate (Morphine Injection -) 4 mg IVPB Q3H PRN PRN Reason: MODERATE PAIN Last Admin: 10/10/16 02:08 Dose: 4 mg Oxycodone HCl (Roxicodone -) 7.5 mg PO Q4H PRN PRN Reason: PAIN Ramipril (Altace -) 2.5 mg PO DAILY JOHN Last Admin: 10/09/16 09:05 Dose: Not Given Constitutional: Yes: Awake and alert, mildly tachypenic at rest Eyes: Yes: Conjunctiva Clear, PERRL HENT: Yes: Normocephalic Cardiovascular: Yes: Regular Rate and Rhythm, S1, S2, Other (mild tachycardia). No: Gallop, Murmur, Rub Respiratory: Yes: scattered basilar rhonchi. No: Accessory Muscle Use Gastrointestinal: Yes: Soft (abdominal incisions c/d/i), Hypoactive Bowel Sounds , Tenderness Extremities: Yes: WNL Edema: No Peripheral Pulses WNL: Yes Integumentary: Yes: WNL Wound/Incision: Yes: Clean/Dry, Well Approximated, Sutures Intact, Open to air, Dressing Dry and Intact Neurological: Yes: Non-focal ...Motor Strength: WNL Psychiatric: Yes: WNL Labs: Laboratory Results - last 24 hr 10/10/16 10/10/16 05:10 05:10 WBC 6.9 RBC 3.48 L Hgb 10.5 L Hct 31.2 L MCV 89.7 MCH 30.2 MCHC 33.7 RDW 14.0 Plt Count 257 MPV 8.5 Sodium 141 Potassium 4.1 Chloride 105 Carbon Dioxide 32 Anion Gap 4 L BUN 4 L Creatinine 0.4 L Random Glucose 105 Calcium 8.3 L Magnesium 1.8 Problem List - Problems (1) S/P colon resection Code(s): Z90.49 - ACQUIRED ABSENCE OF OTHER SPECIFIED PARTS OF DIGESTIVE TRACT Assessment/Plan Mild Pulmonary Vascular Congestion Colonic Mass -> CA S/P Ureteral stent placement S/P Laparoscopic colon resection. -Pain control as needed -Wound care -Currently monitoring off ABX -O2 as needed to maintain saturation -IVF -ASA -Lovenox -PPI -Incentive Spirometry -PO when OK with surgery Dr Romero Critical Care Total Critical Care Time (in minutes): 35 Critical Care Statement: The care of this patient involved high complexity decision making to prevent further life threatening deterioration of the patient 's condition and/or to evalute & treat vital organ system(s) failure or risk of failure.
[2016-10-10] MEDS ORDERED: MAGNESIUM SULF 50% (8.12 MEQ/2 ML-1 GM VIAL) IVPB ONE (08:49)
[2016-10-10] MEDS: ENOXAPARIN NA (PORCINE) 40 MG/0.4 ML DISP.SYRIN SQ SCH (09:17)
[2016-10-10] MEDS: PANTOPRAZOLE SODIUM 100 ML IVPB SCH (09:18)
[2016-10-10] MEDS: D5-1/2NS+20 MEQ KCL - 1,000 ML IV SCH ×2 (09:18→11:41)
[2016-10-10] MEDS: ASPIRIN 81 MG CHEWABLE TABLETS PO SCH (09:19)
[2016-10-10] MEDS: RAMIPRIL 2.5 MG CAPSULE (FP) PO SCH (09:19)
[2016-10-10] MEDS: METOPROLOL TARTRATE 50 MG TABLET (FP) PO SCH (09:20)
[2016-10-10] MEDS ORDERED: dilTIAZem HCL 50 MG/10 ML - 10 ML VIAL IVPUSH ONE (10:38)
[2016-10-10] MEDS ORDERED: dilTIAZem HCL 125 MG/25 ML - 25 ML VIAL ONE (10:40)
[2016-10-10] MEDS ORDERED: dilTIAZem HCL 125 MG/25 ML - 5 ML VIAL ONE (11:06)
[2016-10-10] MEDS: DILTIAZEM INJECTION 125 MG in DEXTROSE 5%-WATER - 100 ML IVPB SCH (11:15)
[2016-10-10] MEDS ORDERED: METOPROLOL TARTRATE 5 MG/5 ML VIAL IVPUSH PRN (11:28)
[2016-10-10 12:28] LABS: TROPONIN I 6.9 ng/ml (0.00-0.05)
[2016-10-10] MEDS ORDERED: HEPARIN INFUSION - 500 ML IVPB ONE (13:19)
[2016-10-10] MEDS ORDERED: HEPARIN NA (PORCINE) 5,000 UNITS/ML 1ML VIAL IVPUSH ONE (14:25)
[2016-10-10] MEDS ORDERED: HEPARIN NA (PORCINE) 5,000 UNITS/ML 1ML VIAL IVPUSH PRN ×2 (14:25)
--- NOTE | 2016-10-10 15:14 | PN ---
Progress Note (short form) - Note Progress Note: surgery pt seen and examined this am. no pain. feels well. afebrile abd- soft, nd, nt, incision clean, kostas serous Laboratory Tests 10/10/16 10/10/16 05:10 11:25 WBC 6.9 CK-MB (CK-2) 7.657 H Troponin I 6.90 H* after my rounds pt developed afib with rvr and elevated trop. rate controlled by ICU and cardiology consulted. Pt reports still feeling well. A/P 1) Pod#3- npo, ivf per critical care, cont kostas, cont hardy, cont stent 2) prophylaxis- protonix, lovenox, oob, spirometer 3) htn/cad- on home meds-- ramapril, altace, asa-- ??new CT with afib vs demand ischemia. ok to fully anticoagulate if indicated. per cardiology. 4) likely colon ca-follow path 5) bladder involvement of tumor- will get cystogram next week prior to removal
[2016-10-10] MEDS ORDERED: DEXTROSE 5%-0.45% SALINE 1,000 ML IV SCH (15:15)
[2016-10-10 18:41] LABS: TROPONIN I 5.8 ng/ml (0.00-0.05)
[2016-10-10] MEDS: FUROSEMIDE 40 MG/4 ML INJECTABLE VIAL IVPB SCH (19:16)
[2016-10-10] MEDS: HEPARIN INFUSION - 500 ML IVPB SCH (21:30)
[2016-10-11] MEDS: morphine CARPU-JECT 4 MG/1 ML DISP.SYRIN IVPB PRN ×3 (03:00→21:35)
[2016-10-11] MEDS ORDERED: dilTIAZem HCL 125 MG/25 ML - 5 ML VIAL ONE (03:09)
[2016-10-11] MEDS: FUROSEMIDE 40 MG/4 ML INJECTABLE VIAL IVPB SCH ×2 (05:15→18:12)
[2016-10-11] MEDS: DILTIAZEM INJECTION 125 MG in DEXTROSE 5%-WATER - 100 ML IVPB SCH (05:16)
[2016-10-11 06:05] LABS: BASOPHIL 0.5 % (0-2.0); EOSINOPHIL 5.3 % (0-4.5); MCH 29.9 pg (25.7-33.7); MCHC 33.6 g/dl (32.0-36.0); MEAN PLT VOLUME 8.4 fl (7.5-11.1); NEUTROPHILS 60.3 % (42.8-82.8); PLATELET COUNT 267 K/MM3 (134-434); RDW 13.8 % (11.6-15.6); WHITE BLOOD COUNT 6.7 K/mm3 (4.0-10.0)
[2016-10-11 06:49] LABS: ALBUMIN 2.3 g/dl (3.4-5.0); ALK PHOS 60 U/L (45-117); ANION GAP 6 (8-16); BILIRUBIN,TOTAL 0.7 mg/dL (0.2-1.0); CALCIUM 8.4 mg/dL (8.5-10.1); CO2 33 mmol/L (21-32); CREATININE 0.3 mg/dL (0.55-1.02); GLUCOSE,RANDOM 110 mg/dL (74-106); MAGNESIUM 1.9 mg/dL (1.8-2.4); SGOT/AST 35 U/L (15-37); SGPT/ALT 19 U/L (12-78); TOT PROT 4.8 g/dl (6.4-8.2)
--- NOTE | 2016-10-11 07:00 | CON.CARD ---
Consult Consult Specialty:: Cardiology Referred by:: Reason for Consultation:: Post op AF, new onset w/ RVR and demand ischemia - History of Present Illness Chief Complaint: AF w/ RVR and palpitations History of Present Illness: 76F w/ CAD s/p PCI x 3 10 years ago, HTN, HL s/p colon resection developed post op AF w/ RVR yesterday. After several doses Cardizem and IV lopressor, now back in NSR (total AF time < 24 hours). She had palps during AF; no CP or SOB. No prior hx AF. Since PCIs, no further interventions. Denies exertional CP or recent angina. Stress test preop w/ Dr. Ospina preop reportedly normal. CTA done negative for pulmonary embolism, but showed bilateral effusions. BNP elevated. TnI +, but trend is flat likely due to demand ischemia in setting AF w/ RVR. - History Source History Provided By: Patient, Medical Record - Past Medical History Cardio/Vascular: Yes: CAD (s/p PCI x3 10 years ago, no SD), HTN Pulmonary: Yes: COPD (suspected) Gastrointestinal: Yes: Cancer (colon CA s/p resection) Hepatobiliary: No: Cirrhosis, Cholelithiasis, Cholecystitis, Choledocholithiasis , Hepatitis A, Hepatitis B, Hepatitis C, Other Renal/: No: Renal Failure, Renal Inusuff, BPH, Cancer, Hematuria, Hemodialysis , Neurogenic Bladder, Renal Calculi, UTI, Other Reproductive: No: Ectopic , Endometriosis, Fibroids, PID, Polycystic Ovary Syndrome, Postmenopausal, Other ...: No Infectious Disease: No: AIDS, C-Diff, Herpes Zoster, HIV, MRSA, STD's, Tuberculosis, VREF, Other Psych: Yes: Anxiety Musculoskeletal: Yes: Other (back pain, arthritis) Rheumatology: Yes: Other - Past Surgical History Additional Surgical History: kyphoplasty 2010 - Alcohol/Substance Use Hx Alcohol Use: No - Smoking History Smoking history: Former smoker Have you smoked in the past 12 months: No If you are a former smoker, when did you quit?: quit 20 yrs ago - Social History Usual Living Arrangement: With Child ADL: Independent History of Recent Travel: No Home Medications - Allergies Allergies/Adverse Reactions: Allergies Allergy/AdvReac Type Severity Reaction Status Date / Time No Known Allergies Allergy Verified 10/07/16 10:32 - Home Medications Home Medications: Ambulatory Orders Alprazolam 0.25 tab PO PRN 10/07/16 Aspirin [Asya Chewable Aspirin] 10/07/16 Ibuprofen 10/07/16 Metoprolol Succinate 50 tab PO DAILY 10/07/16 Metoprolol Tartrate 10/07/16 Ramipril 2.5 cap PO DAILY 10/07/16 Rosuvastatin [Crestor -] 20 mg PO DAILY 10/07/16 Family Disease History - Family Disease History Family Disease History: Other: Mother (colon cancer) Review of Systems Findings/Remarks: see HPI - Review of Systems Constitutional: reports: No Symptoms Eyes: reports: No Symptoms HENT: reports: No Symptoms Neck: reports: No Symptoms Cardiovascular: reports: No Symptoms Respiratory: reports: No Symptoms Gastrointestinal: reports: No Symptoms Genitourinary: reports: No Symptoms Breasts: reports: No Symptoms Reported Musculoskeletal: reports: No Symptoms Integumentary: reports: No Symptoms Neurological: reports: No Symptoms Endocrine: reports: No Symptoms Hematology/Lymphatic: reports: No Symptoms Psychiatric: reports: No Symptoms - Risk Factors Known Risk Factors: Yes: Hypercholesterolemia, Hypertension, Smoking, Other ( known CAD) Vital Signs: Vital Signs Temperature 98.3 F 10/11/16 05:43 Pulse Rate 85 10/11/16 05:43 Respiratory Rate 20 10/11/16 05:43 Blood Pressure 104/55 10/11/16 05:43 O2 Sat by Pulse Oximetry (%) 98 10/10/16 19:50 Constitutional: Yes: No Distress Eyes: Yes: Conjunctiva Clear Respiratory: Yes: CTA Bilaterally Gastrointestinal: Yes: Soft (incision C/D/I) Cardiovascular: Yes: Regular Rate and Rhythm JVD: No Carotid Bruit: No Heart Sounds: Yes: S1, S2 (no murmurs) Edema: No Peripheral Pulses WNL: Yes Neurological: Yes: Alert, Oriented ...Motor Strength: WNL - Other Data Labs, Other Data: CBC, BMP 10/11/16 05:10 10/11/16 05:10 Troponin, BNP 10/10/16 10/10/16 11:25 17:20 Troponin I 6.90 H* 5.80 H* Troponin, BNP 10/10/16 10/10/16 11:25 17:20 Troponin I 6.90 H* 5.80 H* Laboratory Tests 10/10/16 10/10/16 10/11/16 11:25 17:20 05:10 WBC Hgb Plt Count PTT (Actin FS) Sodium 140 Potassium 3.1 L D BUN 5 L D Creatinine 0.3 L D Calcium 8.4 L Phosphorus 3.0 Magnesium 1.9 Total Bilirubin 0.7 D AST 35 D ALT 19 D Alkaline Phosphatase 60 Creatine Kinase 250 H 182 D Creatine Kinase Index 3.1 2.7 CK-MB (CK-2) 7.657 H 4.932 H Troponin I 6.90 H* 5.80 H* B-Natriuretic Peptide Albumin 2.3 L D 10/11/16 10/11/16 10/11/16 05:10 05:10 05:10 WBC 6.7 Hgb 11.2 Plt Count 267 PTT (Actin FS) 56.8 H Sodium Potassium BUN Creatinine Calcium Phosphorus Magnesium Total Bilirubin AST ALT Alkaline Phosphatase Creatine Kinase 113 Creatine Kinase Index CK-MB (CK-2) Troponin I 4.50 H* B-Natriuretic Peptide 1324.10 H Albumin AF at 135 bpm, inferior nsst changes Baseline in chart: NSR PACs, NSST inferior ST changes TELE: now in NSR Echo: Pending Stress Echo: Other (Stress test preop at [facility] (Dr. Ospina, reports as normal)) Prior Cardiac Procedures: PTCA with Stent, Other (x 2 10 years ago) Imaging - Results Cat Scan: Image Reviewed EKG: Image Reviewed Problem List - Problems (1) S/P colon resection Code(s): Z90.49 - ACQUIRED ABSENCE OF OTHER SPECIFIED PARTS OF DIGESTIVE TRACT (2) Atrial fibrillation Code(s): I48.91 - UNSPECIFIED ATRIAL FIBRILLATION Qualifiers: Atrial fibrillation type: paroxysmal Qualified Code(s): I48.0 - Paroxysmal atrial fibrillation (3) CAD (coronary artery disease) Code(s): I25.10 - ATHSCL HEART DISEASE OF [place] CORONARY ARTERY W/O ANG PCTRS Qualifiers: Coronary Disease-Associated Artery/Lesion type: [place] artery Associated angina: without angina (4) NSTEMI (non-ST elevated myocardial infarction) Assessment/Plan: demand ischemia Code(s): I21.4 - NON-ST ELEVATION (NSTEMI) MYOCARDIAL INFARCTION Assessment/Plan IMP: Colon CA s/p resection, bladder involvement Post op AF, PAF w/ RVR (single episode) now in NSR Volume overload, likely acute on chronic diastolic CHF secondary to AF w/ RVR + TnI, most likely due to demand ischemia secondary to AF w/ RVR REC: 1. AF: probably precipitated by volume overload (mild) -episode < 24 hours, now in NSR -Continue Metoprolol -Continue tele -Replete electrolytes -Heparin gtts for additional 24 hours, if no further AF can d/c heparin this evening or in AM -D/C Cardizem drip -Echo in AM -IV Lasix 2. +TnI: -doubt primary SD -Most likely demand ischemia due to AF w/ RVR. 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
[2016-10-11 07:28] LABS: TROPONIN I 4.5 ng/ml (0.00-0.05)
--- NOTE | 2016-10-11 08:56 | PN ---
Progress Note (short form) - Note Progress Note: Patient seen and examined in the ICU. Awake and alert on 6 L NC O2. No CP or SOB. Back in NSR. Currently on IV Heparin. Noted some increase in hematuria from yesterday -> H&H stable. CT : No PE / Pulmonary vascular congestion. / moderate emphysema Intake & Output 10/08/16 10/09/16 10/10/16 10/11/16 23:59 23:59 23:59 23:59 Intake Total 3575 2504 1671 505 Output Total 1105 1530 3390 1475 Balance 2470 974 -1719 -970 Weight 131 lb 126 lb 9 oz 122 lb 6 oz Last Vital Signs Temp Pulse Resp BP Pulse Ox 98.3 F 85 20 104/55 98 10/11/16 05:43 10/11/16 05:43 10/11/16 05:43 10/11/16 05:43 10/10/16 19:50 Active Medications Albuterol Sulfate (Ventolin 0.083% Nebulizer Soln -) 1 amp NEB Q4H PRN PRN Reason: SHORT OF BREATH/WHEEZING Last Admin: 10/08/16 15:10 Dose: 1 amp Aspirin (Asa -) 81 mg PO DAILY [facility] Last Admin: 10/10/16 09:19 Dose: Not Given Fentanyl (Sublimaze Injection -) 50 mcg IVPUSH [id number] PRN PRN Reason: PAIN Stop: 10/11/16 14:48 Furosemide (Lasix Injection -) 20 mg IVPB BID@0600,1800 [facility] Last Admin: 10/11/16 05:15 Dose: 20 mg Heparin Sodium (Porcine) (Heparin -) 5,000 unit IVPUSH PRN PRN Heparin Sodium (Porcine) (Heparin -) 1,000 unit IVPUSH PRN PRN Pantoprazole Sodium (Protonix 40mg Ivpb (Pre-Docked)) 100 mls @ 200 mls/hr IVPB DAILY [facility] Last Admin: 10/10/16 09:18 Dose: 200 mls/hr Dextrose/Sodium Chloride (D5-1/2ns -) 1,000 mls @ 42 mls/hr IV ASDIR [facility] Last Admin: 10/10/16 13:00 Dose: 42 mls/hr Heparin Sodium/Dextrose (Heparin Infusion -) 500 mls @ 18 mls/hr IVPB TITR JOHN ; 900 UNITS/HR PRN Reason: Protocol Last Admin: 10/10/16 21:30 Dose: 18 mls/hr Potassium Chloride (Potassium Chloride 10 Meq Premix Ivpb -) 100 mls @ 100 mls/ hr IVPB Q60M [facility] Stop: 10/11/16 10:29 Metoprolol Tartrate (Lopressor -) 50 mg PO DAILY JOHN Last Admin: 10/10/16 09:20 Dose: Not Given Metoprolol Tartrate (Lopressor Injection -) 5 mg IVPUSH Q4H PRN PRN Reason: HYPERTENSION Last Admin: 10/10/16 11:28 Dose: 5 mg Morphine Sulfate (Morphine Injection -) 4 mg IVPB Q3H PRN PRN Reason: MODERATE PAIN Last Admin: 10/11/16 03:00 Dose: 4 mg Oxycodone HCl (Roxicodone -) 7.5 mg PO Q4H PRN PRN Reason: PAIN Constitutional: Yes: Awake and alert, mildly tachypenic at rest Eyes: Yes: Conjunctiva Clear, PERRL HENT: Yes: Normocephalic Cardiovascular: Yes: Regular Rate and Rhythm, S1, S2, No: Gallop, Murmur, Rub Respiratory: Yes: scattered basilar rhonchi. No: Accessory Muscle Use Gastrointestinal: Yes: Soft (abdominal incisions c/d/i), Hypoactive Bowel Sounds , Tenderness Extremities: Yes: WNL Edema: No Peripheral Pulses WNL: Yes Integumentary: Yes: WNL Wound/Incision: Yes: Clean/Dry, Well Approximated, Sutures Intact, Open to air, Dressing Dry and Intact Neurological: Yes: Non-focal ...Motor Strength: WNL Psychiatric: Yes: WNL Labs: Laboratory Results - last 24 hr 10/10/16 10/10/16 10/10/16 11:25 17:20 18:55 WBC RBC Hgb Hct MCV MCH MCHC RDW Plt Count MPV Neutrophils % Lymphocytes % Monocytes % Eosinophils % Basophils % PTT (Actin FS) 56.3 H Sodium Potassium Chloride Carbon Dioxide Anion Gap BUN Creatinine Creat Clearance w eGFR Random Glucose Calcium Phosphorus Magnesium Total Bilirubin AST ALT Alkaline Phosphatase Creatine Kinase 250 H 182 D Creatine Kinase Index 3.1 2.7 CK-MB (CK-2) 7.657 H 4.932 H Troponin I 6.90 H* 5.80 H* B-Natriuretic Peptide Total Protein Albumin 10/11/16 10/11/16 10/11/16 05:10 05:10 05:10 WBC 6.7 RBC 3.74 Hgb 11.2 Hct 33.2 MCV 89.0 MCH 29.9 MCHC 33.6 RDW 13.8 Plt Count 267 MPV 8.4 Neutrophils % 60.3 Lymphocytes % 27.0 Monocytes % 6.9 Eosinophils % 5.3 H Basophils % 0.5 PTT (Actin FS) Sodium 140 Potassium 3.1 L D Chloride 101 Carbon Dioxide 33 H Anion Gap 6 L BUN 5 L D Creatinine 0.3 L D Creat Clearance w eGFR > 60 Random Glucose 110 H Calcium 8.4 L Phosphorus 3.0 Magnesium 1.9 Total Bilirubin 0.7 D AST 35 D ALT 19 D Alkaline Phosphatase 60 Creatine Kinase 113 Creatine Kinase Index CK-MB (CK-2) Troponin I 4.50 H* B-Natriuretic Peptide 1324.10 H Total Protein 4.8 L D Albumin 2.3 L D 10/11/16 05:10 WBC RBC Hgb Hct MCV MCH MCHC RDW Plt Count MPV Neutrophils % Lymphocytes % Monocytes % Eosinophils % Basophils % PTT (Actin FS) 56.8 H Sodium Potassium Chloride Carbon Dioxide Anion Gap BUN Creatinine Creat Clearance w eGFR Random Glucose Calcium Phosphorus Magnesium Total Bilirubin AST ALT Alkaline Phosphatase Creatine Kinase Creatine Kinase Index CK-MB (CK-2) Troponin I B-Natriuretic Peptide Total Protein Albumin Problem List - Problems (1) S/P colon resection Code(s): Z90.49 - ACQUIRED ABSENCE OF OTHER SPECIFIED PARTS OF DIGESTIVE TRACT Assessment/Plan New AFib -> NSR PE ruled out Mild Pulmonary Vascular Congestion Colonic Mass -> CA S/P Ureteral stent placement S/P Laparoscopic colon resection. Hematuria -Pain control as needed -Wound care -Currently monitoring off ABX -O2 as needed to maintain saturation -IVF -ASA -Lovenox -PPI -Incentive Spirometry -Follow H&H -PO when OK with surgery Dr Romero Critical Care Total Critical Care Time (in minutes): 35 Critical Care Statement: The care of this patient involved high complexity decision making to prevent further life threatening deterioration of the patient 's condition and/or to evalute & treat vital organ system(s) failure or risk of failure.
[2016-10-11] MEDS ORDERED: MAGNESIUM SULF 50% (8.12 MEQ/2 ML-1 GM VIAL) IVPB ONE (08:58)
[2016-10-11] MEDS ORDERED: HEPARIN INFUSION - 500 ML IVPB SCH ×2 (10:00)
[2016-10-11] MEDS: D5-1/2NS+40 MEQ KCL - 1,000 ML IV SCH (10:39)
[2016-10-11] MEDS: METOPROLOL TARTRATE 50 MG TABLET (FP) PO SCH (10:40)
[2016-10-11] MEDS: PANTOPRAZOLE SODIUM 100 ML IVPB SCH (10:40)
[2016-10-11] MEDS: ASPIRIN 81 MG CHEWABLE TABLETS PO SCH (10:40)
[2016-10-11] MEDS: KCL 10 MEQ IVPB 100 ML IVPB SCH ×2 (10:40→13:44)
--- NOTE | 2016-10-11 12:21 | PN ---
Progress Note (short form) - Note Progress Note: surgery pt seen and examined this am. complains of hand pain from iv with potassium. now in sinus rhythm. no abd pain. no flatus. no bm. in chair. afebrile abd- soft, nd, nt, incision clean, kostas serous hardy blood tinged Laboratory Tests 10/11/16 05:10 WBC 6.7 A/P 1) Pod#3- npo, ivf per critical care (currently 42 for chf), cont kostas, cont hardy, cont stent 2) prophylaxis- protonix, oob, spirometer-- on heparin drip 3) htn/cad- per cardiology/critical care 4) likely colon ca-follow path 5) bladder involvement of tumor- will get cystogram next week prior to removal 6) afib- felt to be from diastolic chf mild fluid overload leading to demand ischemia- now in sinus. ok to fully anticoagualte. current plans are to stop anticoagulation since no RI is felt to have occurred and afib<24 hours
[2016-10-11] MEDS ORDERED: POTASSIUM CHLORIDE ORAL LIQUID 20 MEQ/15 ML PO ONE (14:30)
[2016-10-11] MEDS ORDERED: PT OWN MED DRAWER 7, Y5N ONE (17:21)
[2016-10-11] MEDS: HEPARIN INFUSION - 500 ML IVPB SCH (17:51)
[2016-10-11] MEDS ORDERED: POTASSIUM CHLORIDE TABS 20 MEQ TABLET.ER (FP) PO ONE (18:00)
[2016-10-11 18:55] LABS: MCH 29.8 pg (25.7-33.7); MCHC 33.8 g/dl (32.0-36.0); MEAN CELL VOLUME 88.3 fl (80-96); MEAN PLT VOLUME 8.9 fl (7.5-11.1); PLATELET COUNT 263 K/MM3 (134-434); RDW 13.5 % (11.6-15.6); WHITE BLOOD COUNT 7.5 K/mm3 (4.0-10.0)
[2016-10-11] MEDS ORDERED: morphine CARPU-JECT 4 MG/1 ML DISP.SYRIN ONE (21:29)
[2016-10-11] MEDS ORDERED: morphine CARPU-JECT 2 MG/1 ML DISP.SYRIN IVPUSH PRN (21:29)
[2016-10-12 06:20] LABS: BASOPHIL 0.6 % (0-2.0); EOSINOPHIL 7.3 % (0-4.5); MCH 30.1 pg (25.7-33.7); MCHC 33.6 g/dl (32.0-36.0); MEAN CELL VOLUME 89.7 fl (80-96); MEAN PLT VOLUME 8.6 fl (7.5-11.1); NEUTROPHILS 54.3 % (42.8-82.8); PLATELET COUNT 254 K/MM3 (134-434); RDW 13.5 % (11.6-15.6); WHITE BLOOD COUNT 6.1 K/mm3 (4.0-10.0)
[2016-10-12 06:56] LABS: ALBUMIN 2.3 g/dl (3.4-5.0); ANION GAP 4 (8-16); BILIRUBIN,TOTAL 0.6 mg/dL (0.2-1.0); CALCIUM 8.9 mg/dL (8.5-10.1); CO2 35 mmol/L (21-32); CREATININE 0.4 mg/dL (0.55-1.02); GLUCOSE,RANDOM 101 mg/dL (74-106); MAGNESIUM 2.4 mg/dL (1.8-2.4); SGOT/AST 25 U/L (15-37); SGPT/ALT 18 U/L (12-78); TOT PROT 4.9 g/dl (6.4-8.2)
[2016-10-12 07:10] LABS: ALK PHOS 60 U/L (45-117)
[2016-10-12 07:20] LABS: TROPONIN I 3.07 ng/ml (0.00-0.05)
--- NOTE | 2016-10-12 09:25 | EKG ---
Test Reason : Blood Pressure : / mmHG Vent. Rate : 135 BPM Atrial Rate : 197 BPM P-R Int : 000 ms QRS Dur : 078 ms QT Int : 260 ms P-R-T Axes : 000 072 -80 degrees QTc Int : 390 ms ATRIAL FIBRILLATION WITH RAPID VENTRICULAR RESPONSE ABNORMAL ECG NO PREVIOUS ECGS AVAILABLE Confirmed by ANDREIA COLON, JOSEPH ([id number]) on 10/12/2016 9:25:15 AM Referred By: Nahid Zimmer Confirmed By:JOSEPH BOSWELL MD
[2016-10-12] MEDS: PANTOPRAZOLE SODIUM 100 ML IVPB SCH (09:34)
[2016-10-12] MEDS: METOPROLOL TARTRATE 50 MG TABLET (FP) PO SCH (09:35)
[2016-10-12] MEDS: ASPIRIN 81 MG CHEWABLE TABLETS PO SCH (09:35)
[2016-10-12] MEDS: D5-1/2NS+40 MEQ KCL - 1,000 ML IV SCH (09:40)
--- NOTE | 2016-10-12 09:57 | PN ---
Physical Exam: SUBJECTIVE: Patient seen and examined. She is in NAD and has no new complaints. Had run of [employer] w/ RVR over the weekend, now still in NSR. Patient expresses desire to eat. Patient denies SOB, chest pain. OBJECTIVE: Vital Signs Temperature 97.9 F 10/12/16 04:00 Pulse Rate 93 H 10/12/16 08:00 Respiratory Rate 16 10/12/16 08:00 Blood Pressure 117/51 10/12/16 08:00 O2 Sat by Pulse Oximetry (%) 99 10/11/16 20:38 GENERAL: The patient is awake, alert, and fully oriented, in no acute distress. HEAD: Normal with no signs of trauma. EYES: extraocular movements intact, sclera anicteric, conjunctiva clear. No ptosis. NECK: Trachea midline, full range of motion, supple. LUNGS: Breath sounds equal, clear to auscultation bilaterally, no wheezes, no crackles, no accessory muscle use. HEART: Regular rate and rhythm, S1, S2 without murmur, rub or gallop. ABDOMEN: Soft, nontender, nondistended, normoactive bowel sounds, no guarding, no rebound. Surgical incisions healing well, no erythema, no drainage EXTREMITIES: warm, well-perfused, no edema. NEUROLOGICAL: Cranial nerves II through X grossly intact. Normal speech, gait not observed. PSYCH: Normal mood, normal affect. SKIN: Warm, dry, normal turgor, no rashes or lesions noted Laboratory Results - last 24 hr 10/11/16 10/12/16 10/12/16 18:30 05:05 05:05 WBC 7.5 6.1 RBC 3.77 3.68 Hgb 11.2 11.1 Hct 33.3 33.0 MCV 88.3 89.7 MCH 29.8 30.1 MCHC 33.8 33.6 RDW 13.5 13.5 Plt Count 263 254 MPV 8.9 8.6 Neutrophils % 54.3 Lymphocytes % 30.5 Monocytes % 7.3 Eosinophils % 7.3 H Basophils % 0.6 PTT (Actin FS) 66.9 H Sodium Potassium Chloride Carbon Dioxide Anion Gap BUN Creatinine Creat Clearance w eGFR Random Glucose Calcium Magnesium Total Bilirubin AST ALT Alkaline Phosphatase Creatine Kinase Troponin I Total Protein Albumin 10/12/16 05:05 WBC RBC Hgb Hct MCV MCH MCHC RDW Plt Count MPV Neutrophils % Lymphocytes % Monocytes % Eosinophils % Basophils % PTT (Actin FS) Sodium 140 Potassium 4.0 D Chloride 101 Carbon Dioxide 35 H Anion Gap 4 L BUN 7 D Creatinine 0.4 L D Creat Clearance w eGFR > 60 Random Glucose 101 Calcium 8.9 Magnesium 2.4 D Total Bilirubin 0.6 AST 25 D ALT 18 Alkaline Phosphatase 60 Creatine Kinase 74 Troponin I 3.07 H* Total Protein 4.9 L Albumin 2.3 L Active Medications Generic Name Dose Route Start Last Admin Trade Name Maria Teresa PRN Reason Stop Dose Admin Albuterol Sulfate 1 amp 10/08/16 14:54 10/08/16 15:10 Ventolin 0.083% Nebulizer Soln - NEB 1 amp Q4H PRN Administration SHORT OF BREATH/WHEEZING Aspirin 81 mg 10/09/16 10:00 10/12/16 09:35 Asa - PO 81 mg DAILY JOHN Administration Furosemide 20 mg 10/10/16 18:30 10/11/16 18:12 Lasix Injection - IVPB Not Given BID@0600,1800 JOHN Heparin Sodium (Porcine) 5,000 unit 10/10/16 14:25 Heparin - IVPUSH PRN PRN Heparin Sodium (Porcine) 1,000 unit 10/10/16 14:25 Heparin - IVPUSH PRN PRN Pantoprazole Sodium 100 mls @ 200 mls/hr 10/09/16 10:00 10/12/16 09:34 Protonix 40mg Ivpb (Pre-Docked) IVPB 200 mls/hr DAILY JOHN Administration Heparin Sodium/Dextrose 500 mls @ 18 mls/hr 10/10/16 21:30 10/11/16 19:30 Heparin Infusion - IVPB 900 units/hr TITR JOHN Titration Protocol 900 UNITS/HR Dextrose/Sodium Chloride 1,000 mls @ 42 mls/hr 10/11/16 09:00 10/12/16 09:40 D5-1/2ns+40 Meq Kcl - IV 42 mls/hr ASDIR JOHN Administration Metoprolol Tartrate 50 mg 10/09/16 10:00 10/12/16 09:35 Lopressor - PO 50 mg DAILY JOHN Administration Metoprolol Tartrate 5 mg 10/10/16 11:28 10/10/16 11:28 Lopressor Injection - IVPUSH 5 mg Q4H PRN Administration HYPERTENSION Morphine Sulfate 3 mg 10/11/16 21:29 Morphine Injection - IVPUSH Q3H PRN PAIN ASSESSMENT/PLAN: Neuro -patient is A&Ox3 Pulmonary -patient is saturating well on nasal cannula Cardio -new onset afib with RVR -Patient remains in NSR today -anticoagulation as per cardiology -will obtain echo to assess cardiac function Abdominal -S/P laproscopic low anterior colon resection -surgical sites healing well -patient is passing flatus -pain controlled FEN -D5 1/2NS + 40 meq KCL @ 42 as patient is NPO -monitor lytes -NPO; will advance diet as per surgery Dispo -patient is stable to be transferred to telemetry floor as soon as cleared by surgery Problem List - Problems (1) CAD (coronary artery disease) Code(s): I25.10 - ATHSCL HEART DISEASE OF [place] CORONARY ARTERY W/O ANG PCTRS Qualifiers: Coronary Disease-Associated Artery/Lesion type: [place] artery Associated angina: without angina (2) S/P colon resection Code(s): Z90.49 - ACQUIRED ABSENCE OF OTHER SPECIFIED PARTS OF DIGESTIVE TRACT (3) New onset atrial fibrillation Code(s): I48.91 - UNSPECIFIED ATRIAL FIBRILLATION Visit type - Emergency Visit Emergency Visit: Yes ED Registration Date: 10/07/16 Care time: The patient presented to the Emergency Department on the above date and was hospitalized for further evaluation of their emergent condition. - New Patient This patient is new to me today: Yes Date on this admission: 10/12/16 - Critical Care Critical Care patient: Yes Total Critical Care Time (in minutes): 35 Critical Care Statement: The care of this patient involved high complexity decision making to prevent further life threatening deterioration of the patient 's condition and/or to evalute & treat vital organ system(s) failure or risk of failure.
--- NOTE | 2016-10-12 11:47 | PN ---
Progress Note, Physician History of Present Illness: Passing flatus, await BM, no abd pain, remains in SR, denies chest pain or dyspnea. Developed hematuria on heparin gtt. - Current Medication List Current Medications: Active Medications Albuterol Sulfate (Ventolin 0.083% Nebulizer Soln -) 1 amp NEB Q4H PRN PRN Reason: SHORT OF BREATH/WHEEZING Last Admin: 10/08/16 15:10 Dose: 1 amp Aspirin (Asa -) 81 mg PO DAILY [facility] Last Admin: 10/12/16 09:35 Dose: 81 mg Furosemide (Lasix Injection -) 20 mg IVPB BID@0600,1800 [facility] Last Admin: 10/11/16 18:12 Dose: Not Given Heparin Sodium (Porcine) (Heparin -) 5,000 unit IVPUSH PRN PRN Heparin Sodium (Porcine) (Heparin -) 1,000 unit IVPUSH PRN PRN Pantoprazole Sodium (Protonix 40mg Ivpb (Pre-Docked)) 100 mls @ 200 mls/hr IVPB DAILY [facility] Last Admin: 10/12/16 09:34 Dose: 200 mls/hr Heparin Sodium/Dextrose (Heparin Infusion -) 500 mls @ 18 mls/hr IVPB TITR JOHN ; 900 UNITS/HR PRN Reason: Protocol Last Titration: 10/11/16 19:30 Dose: 900 units/hr Dextrose/Sodium Chloride (D5-1/2ns+40 Meq Kcl -) 1,000 mls @ 42 mls/hr IV ASDIR [facility] Last Admin: 10/12/16 09:40 Dose: 42 mls/hr Metoprolol Tartrate (Lopressor -) 50 mg PO DAILY [facility] Last Admin: 10/12/16 09:35 Dose: 50 mg Metoprolol Tartrate (Lopressor Injection -) 5 mg IVPUSH Q4H PRN PRN Reason: HYPERTENSION Last Admin: 10/10/16 11:28 Dose: 5 mg Morphine Sulfate (Morphine Injection -) 3 mg IVPUSH Q3H PRN PRN Reason: PAIN - Objective Vital Signs: Vital Signs Temperature 99.4 F 10/12/16 10:00 Pulse Rate 84 10/12/16 10:15 Respiratory Rate 19 10/12/16 10:00 Blood Pressure 113/59 10/12/16 10:00 O2 Sat by Pulse Oximetry (%) 100 10/12/16 10:15 Constitutional: Yes: No Distress, Calm, Thin Neck: Yes: Supple Cardiovascular: Yes: Regular Rate and Rhythm, Murmur (2/6 SM) Respiratory: Yes: Regular, Diminished Gastrointestinal: Yes: Normal Bowel Sounds, Soft Genitourinary: Yes: Hernandez Present, Hematuria Edema: No Labs: CBC, BMP 10/12/16 05:05 10/12/16 05:05 - ....Imaging EKG: Report Reviewed (Tele: SR) Problem List - Problems (1) Atrial fibrillation Code(s): I48.91 - UNSPECIFIED ATRIAL FIBRILLATION Qualifiers: Atrial fibrillation type: paroxysmal Qualified Code(s): I48.0 - Paroxysmal atrial fibrillation (2) CAD (coronary artery disease) Code(s): I25.10 - ATHSCL HEART DISEASE OF [place] CORONARY ARTERY W/O ANG PCTRS Qualifiers: Coronary Disease-Associated Artery/Lesion type: [place] artery Associated angina: without angina (3) S/P colon resection Code(s): Z90.49 - ACQUIRED ABSENCE OF OTHER SPECIFIED PARTS OF DIGESTIVE TRACT (4) Demand ischemia Code(s): I24.8 - OTHER FORMS OF ACUTE ISCHEMIC HEART DISEASE (5) Acute on chronic diastolic (congestive) heart failure Code(s): I50.33 - ACUTE ON CHRONIC DIASTOLIC (CONGESTIVE) HEART FAILURE (6) Moderate to severe mitral regurgitation Code(s): I34.0 - NONRHEUMATIC MITRAL (VALVE) INSUFFICIENCY (7) S/P coronary artery stent placement Code(s): Z95.5 - PRESENCE OF CORONARY ANGIOPLASTY IMPLANT AND GRAFT Assessment/Plan 10/12/2016 Echo: Normal biventricular size and fxn, mild JAME, mod-severe MR, mild TR RVSP 45 mmHg 1. Colon CA s/p resection with bladder involvement Pod#4 2. CAD h/o PCI (Stent) post demand ischemia with no ischemia on pre-op MPI 3. Paroxysmal atrial fibrillation currently in SR ([id number]) on heparin gtt, ruled out for PE 4. Acute on chronic diastolic failure with mod-severe MR improved 5. HTN/HCVD P:1. Troponins are trending lower, decrease diuresis 2. Change ASA and heparin gtt to Eliquis 5 bid (age<80, Cr<1.5, weight<60 Kg) 3. Continue Lopressor 50 qd, resume ramipril 2.5 qd with uptitration as hemodynamics tolerated 4. Follow pathology, given bladder involvement of tumor- plan for cystogram next week prior to removal 5. D/w Dr. Ospina, cath not warranted given recent pre-op MPI negative for ischemia
--- NOTE | 2016-10-12 12:12 | PN ---
Teaching Attending Note Name of Resident: Rojelio Guerrier ATTENDING PHYSICIAN STATEMENT I saw and evaluated the patient. I reviewed the resident's note and discussed the case with the resident. I agree with the resident's findings and plan as documented. SUBJECTIVE: Pt seen and examined in the ICU. Doing well. Denies abdominal pain. No nausea or vomiting. +flatus but no BM. No fevers or chills. Remains in sinus rhythm. OBJECTIVE: Last Vital Signs Temp Pulse Resp BP Pulse Ox 99.4 F 82 17 100/53 100 10/12/16 10:00 10/12/16 12:06 10/12/16 12:06 10/12/16 12:06 10/12/16 10:15 Intake & Output 10/09/16 10/10/16 10/11/16 10/12/16 23:59 23:59 23:59 23:59 Intake Total 2504 1671 1625 680 Output Total 1530 3390 3060 650 Balance 414 -5381 -2474 30 Weight 131 lb 126 lb 9 oz 122 lb 6 oz 123 lb Gen: NAD at rest Heart: RRR Lung: decreased breath sounds at the bases Abd: soft, nontender, incisions clean Ext: no edema CBC, BMP 10/12/16 05:05 10/12/16 05:05 Active Medications Albuterol Sulfate (Ventolin 0.083% Nebulizer Soln -) 1 amp NEB Q4H PRN PRN Reason: SHORT OF BREATH/WHEEZING Last Admin: 10/08/16 15:10 Dose: 1 amp Aspirin (Asa -) 81 mg PO DAILY [facility] Last Admin: 10/12/16 09:35 Dose: 81 mg Furosemide (Lasix Injection -) 20 mg IVPB BID@0600,1800 [facility] Last Admin: 10/11/16 18:12 Dose: Not Given Heparin Sodium (Porcine) (Heparin -) 5,000 unit IVPUSH PRN PRN Heparin Sodium (Porcine) (Heparin -) 1,000 unit IVPUSH PRN PRN Pantoprazole Sodium (Protonix 40mg Ivpb (Pre-Docked)) 100 mls @ 200 mls/hr IVPB DAILY [facility] Last Admin: 10/12/16 09:34 Dose: 200 mls/hr Heparin Sodium/Dextrose (Heparin Infusion -) 500 mls @ 18 mls/hr IVPB TITR JOHN ; 900 UNITS/HR PRN Reason: Protocol Last Titration: 10/11/16 19:30 Dose: 900 units/hr Dextrose/Sodium Chloride (D5-1/2ns+40 Meq Kcl -) 1,000 mls @ 42 mls/hr IV ASDIR JOHN Last Admin: 10/12/16 09:40 Dose: 42 mls/hr Metoprolol Tartrate (Lopressor -) 50 mg PO DAILY [facility] Last Admin: 10/12/16 09:35 Dose: 50 mg Metoprolol Tartrate (Lopressor Injection -) 5 mg IVPUSH Q4H PRN PRN Reason: HYPERTENSION Last Admin: 10/10/16 11:28 Dose: 5 mg Morphine Sulfate (Morphine Injection -) 3 mg IVPUSH Q3H PRN PRN Reason: PAIN ASSESSMENT AND PLAN: Colon Cancer s/p Low Anterior Resection 10/08 s/p Left Ureteral Stent placement Post Op Paroxysmal Atrial Fibrillation with RVR now in sinus rhythm +Troponins likely demand ischemia Acute on Chronic Diastolic Heart Failure HTN Hyperlipidemia - rate/rhythm controlled - anticoagulation per cardiology - lasix as needed - f/u path - pain control - incentive spirometry - OOB to chair - await return of bowel function - DVT prophylaxis - can monitor on telemetry if ok with surgery critical care time spent in reviewing chart, evaluating patient and formulating plan 35 min
[2016-10-12] MEDS ORDERED: RAMIPRIL 2.5 MG CAPSULE (FP) PO SCH (13:45)
[2016-10-12] MEDS ORDERED: APIXABAN 2.5 MG TABLET PO SCH (13:45)
--- NOTE | 2016-10-12 16:04 | PATH ---
Surgical Pathology Report Patient Name: DANICA HAGAN [facility] Rec. #: [id number] /Age/Gender: 1940 (Age: 76) / F Account: [id number] Location: 4 SO PEDS/ADOL Taken: 10/08/2016 Received: 10/08/2016 Reported: 10/12/2016 Physicians: Nahid Allen M.D. Specimen(s) Received A: ADDITIONAL DISTAL MARGIN B: PORTION OF RECTOSIGMOID COLON, STITCH HARDING PROXIMAL END Clinical History Colonic mass Final Diagnosis A. COLON, DISTAL MARGIN, EXCISION: PORTION OF UNREMARKABLE COLONIC WALL. B. 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 PERITUMORAL ACUTE AND CHRONIC INFLAMMATION WITH FIBROTIC ADHESIONS PRESENT, BUT NO INVASION OF CARCINOMA INTO ADJACENT STRUCTURES OR OTHER ORGANS IDENTIFIED. NO LARGE VESSEL, LYMPH-VASCULAR, OR PERINEURAL INVASION IDENTIFIED. CARCINOMA IS 0.2 CM FROM THE CIRCUMFERENTIAL (RADIAL) MARGIN, AND 2.8 CM FROM THE PROXIMAL MUCOSAL MARGIN OF RESECTION. NO DISCONTINUOUS EXTRAMURAL EXTENSION IS IDENTIFIED. METASTATIC CARCINOMA IS PRESENT IN ONE OF 17 MESENTERIC LYMPH NODES (1/17). Comment: MisMatch Repair Protein analysis by immunohistochemistry is pending, and a report will follow. Comments Colorectal carcinoma : Surgical Pathology Cancer Case Summary (Checklist) Based on AJCC/UICC TNM, 7th edition Specimen: RECTOSIGMOID COLON Procedure: LOW ANTERIOR RESECTION Tumor Site: SIGMOID Tumor Size Greatest dimension: 5.0 cm Macroscopic Tumor Perforation _X__ Not identified Histologic Type : MUCINOUS Histologic Grade _X__ Low-grade (well-differentiated to moderately differentiated) Microscopic Tumor Extension _X__ Tumor invades through the muscularis propria into the subserosal adipose tissue or the nonperitonealized pericolic or perirectal soft tissues but does not extend to the serosal surface Margins Proximal Margin _X__ Uninvolved by invasive carcinoma Distal Margin _X__ Uninvolved by invasive carcinoma Circumferential (Radial) or Mesenteric Margin _X__ Uninvolved by invasive carcinoma If all margins uninvolved by invasive carcinoma: Distance of invasive carcinoma from closest margin: 2 mm Specify margin: Circumferential (Radial) Lymph-Vascular Invasion _X__ Not identified Perineural Invasion _X__ Not identified Tumor Deposits (discontinuous extramural extension) _X__ Not identified Pathologic Staging (pTNM) Primary Tumor: pT3 Regional Lymph Nodes: pN1a Number examined 17 Number involved 1 Electronically Signed Burke Reese M.D. Addendum Reported: 10/13/2016 Addendum Diagnosis Immunohistochemical stains for MisMatch Repair Protein Analysis on block B4 performed at [facility] in [place], [place] ([id number]) and interpreted at [facility] show the following: RESULTS: HMLH-1 INTACT NUCLEAR EXPRESSION HMSH-2 INTACT NUCLEAR EXPRESSION HMSH-6 INTACT NUCLEAR EXPRESSION PMS2 INTACT NUCLEAR EXPRESSION INTERPRETATION: No loss of nuclear expression of MMR proteins: low probability of microsatellite instability-high (MSI-H) This case was discussed with Dr. Zimmer on October 13, 2016. The gross specimen was reexamined with emphasis on the proximal margin. The proximal margin is grossly free of carcinoma by at least 2.8 cm. Burke Reese M.D. Gross Description A. Received in formalin labeled "additional distal margin," is a 1.7 cm in diameter annular portion of bowel, consistent with a donut. The specimen displays a staple line. No lesions are identified. A promotions representative section is submitted in one cassette. B. Received in formalin labeled "portion of rectosigmoid," is a 16.5 cm in length portion of colon with 2 stapled mucosal margins and moderate attached pericolonic adipose tissue. There is a suture present marking the proximal end of the specimen, per the surgeon. The serosa is penny-pickering with focal bulging and adhesions. The mucosa displays a 5.0 x 3.5 cm penny, polypoid, mucoid circumferential mass at 2.8 cm from the proximal mucosal margin of resection. The mass is at 2 cm from the mesenteric margin of resection. The mass appears to invade through the muscularis and possibly into the pericolonic adipose tissue. The remaining mucosa is penny with normal folds. Sectioning of the pericolonic adipose tissue reveals multiple penny, irregular lymph nodes ranging from 0.2-1.2 cm in greatest dimension. Cd Reactor Operator sections are submitted in 21 cassettes as follows: 1-proximal mucosal margin of resection; 2-distal mucosal margin of resection; 3-mesenteric margin of resection; 4-9-mass; 10-uninvolved distal mucosa; 91-88-rfumlnfg whole lymph nodes each; 14-21-one whole bisected lymph node each. 10/08/2016 saudi10/08/2016
[2016-10-12] MEDS ORDERED: METOPROLOL TARTRATE 5 MG/5 ML VIAL IVPUSH PRN (16:36)
[2016-10-12] MEDS ORDERED: D5-1/2NS+40 MEQ KCL - 1,000 ML IV SCH (16:36)
[2016-10-12] MEDS ORDERED: morphine CARPU-JECT 2 MG/1 ML DISP.SYRIN IVPUSH PRN (16:36)
[2016-10-12] MEDS ORDERED: ALBUTEROL SO4 0.083% IH SOL 2.5 MG/3 ML VIAL.NEB. NEB PRN (16:36)
--- NOTE | 2016-10-12 16:52 | PN ---
Progress Note (short form) - Note Progress Note: surgery pt seen and examined earlier. sitting in chair. having flatus. u/o 2950 blood tinged abd- soft, nt, incision clean, A/P 1) Pod#4- full liquids, ivf per critical care (currently 42 for chf), cont kostas, cont hardy, cont stent 2) prophylaxis- protonix, oob, spirometer-- being switched to eliquis 3) htn/cad- per cardiology/critical care 4) likely colon ca-follow path 5) bladder involvement of tumor- will plan for discharge with catheter and outpt cystogram. will keep in over [address] Zimmer 6) afib- felt to be from diastolic chf mild fluid overload leading to demand ischemia- now in sinus. ok to fully anticoagualte. current plans are for eliquis.
[2016-10-12] MEDS ORDERED: D5-1/2NS+10 MEQ KCL - 1,000 ML IV SCH (19:00)
[2016-10-12] MEDS: morphine CARPU-JECT 4 MG/1 ML DISP.SYRIN IVPUSH PRN (21:48)
[2016-10-12] MEDS: APIXABAN 2.5 MG TABLET PO SCH (21:48)
[2016-10-13 07:31] LABS: MCH 30.7 pg (25.7-33.7); MCHC 34.3 g/dl (32.0-36.0); MEAN CELL VOLUME 89.7 fl (80-96); MEAN PLT VOLUME 8.6 fl (7.5-11.1); PLATELET COUNT 233 K/MM3 (134-434); RDW 13.6 % (11.6-15.6); WHITE BLOOD COUNT 5.4 K/mm3 (4.0-10.0)
[2016-10-13 08:12] LABS: ANION GAP 7 (8-16); CALCIUM 8.8 mg/dL (8.5-10.1); CO2 30 mmol/L (21-32); CREATININE 0.3 mg/dL (0.55-1.02); GLUCOSE,RANDOM 86 mg/dL (74-106)
[2016-10-13] MEDS: APIXABAN 2.5 MG TABLET PO SCH ×2 (09:08→22:10)
[2016-10-13] MEDS: RAMIPRIL 2.5 MG CAPSULE (FP) PO SCH (09:08)
[2016-10-13] MEDS: METOPROLOL TARTRATE 50 MG TABLET (FP) PO SCH (09:08)
[2016-10-13] MEDS ORDERED: FUROSEMIDE 40 MG/4 ML INJECTABLE VIAL IVPB SCH ×2 (10:00)
[2016-10-13] MEDS ORDERED: PANTOPRAZOLE SODIUM 100 ML IVPB SCH (10:00)
--- NOTE | 2016-10-13 13:51 | PN ---
Progress Note (short form) - Note Progress Note: Resting in NAD. No acute events overnight. No CP or SOB. Tolerating Full liquids. Intake & Output 10/10/16 10/11/16 10/12/16 10/13/16 23:59 23:59 23:59 23:59 Intake Total 1671 1625 800 564 Output Total 3390 6630 1875 535 Balance -4359 -1435 -1075 29 Weight 126 lb 9 oz 122 lb 6 oz 123 lb Last Vital Signs Temp Pulse Resp BP Pulse Ox 98.2 F 90 18 107/62 98 10/13/16 10:00 10/13/16 10:00 10/13/16 10:00 10/13/16 10:00 10/13/16 09:00 Active Medications Albuterol Sulfate (Ventolin 0.083% Nebulizer Soln -) 1 amp NEB Q4H PRN PRN Reason: SHORT OF BREATH/WHEEZING Apixaban (Eliquis -) 5 mg PO BID [facility] Last Admin: 10/13/16 09:08 Dose: 5 mg Furosemide (Lasix Injection -) 20 mg IVPB DAILY [facility] Last Admin: 10/13/16 09:08 Dose: 20 mg Pantoprazole Sodium (Protonix 40mg Ivpb (Pre-Docked)) 100 mls @ 200 mls/hr IVPB DAILY [facility] Last Admin: 10/13/16 09:08 Dose: 200 mls/hr Potassium Chloride/Dextrose/Sod Cl (D5-1/2ns+10 Meq Kcl -) 1,000 mls @ 42 mls/ hr IV ASDIR [facility] Last Admin: 10/12/16 19:00 Dose: 42 mls/hr Metoprolol Tartrate (Lopressor -) 50 mg PO DAILY [facility] Last Admin: 10/13/16 09:08 Dose: 50 mg Metoprolol Tartrate (Lopressor Injection -) 5 mg IVPUSH Q4H PRN PRN Reason: HYPERTENSION Morphine Sulfate (Morphine Injection -) 3 mg IVPUSH Q3H PRN PRN Reason: PAIN Last Admin: 10/12/16 21:48 Dose: 3 mg Ramipril (Altace -) 2.5 mg PO DAILY [facility] Last Admin: 10/13/16 09:08 Dose: 2.5 mg Constitutional: Yes: Awake and alert, NAD Eyes: Yes: Conjunctiva Clear, PERRL HENT: Yes: Normocephalic Cardiovascular: Yes: Regular Rate and Rhythm, S1, S2, No: Gallop, Murmur, Rub Respiratory: Yes: scattered basilar rhonchi. No: Accessory Muscle Use Gastrointestinal: Yes: Soft (abdominal incisions c/d/i), Hypoactive Bowel Sounds , Tenderness Extremities: Yes: WNL Edema: No Peripheral Pulses WNL: Yes Integumentary: Yes: WNL Wound/Incision: Yes: Clean/Dry, Well Approximated, Sutures Intact, Open to air, Dressing Dry and Intact Neurological: Yes: Non-focal ...Motor Strength: WNL Psychiatric: Yes: WNL Labs: Laboratory Results - last 24 hr 10/13/16 10/13/16 10/13/16 05:35 05:35 05:35 WBC 5.4 RBC 3.27 L Hgb 10.1 L Hct 29.4 L MCV 89.7 MCH 30.7 MCHC 34.3 RDW 13.6 Plt Count 233 MPV 8.6 PTT (Actin FS) 32.0 D Sodium 142 Potassium 4.1 Chloride 105 Carbon Dioxide 30 Anion Gap 7 L BUN 7 Creatinine 0.3 L D Random Glucose 86 Calcium 8.8 Problem List - Problems (1) S/P colon resection Code(s): Z90.49 - ACQUIRED ABSENCE OF OTHER SPECIFIED PARTS OF DIGESTIVE TRACT Assessment/Plan New AFib -> NSR PE ruled out Mild Pulmonary Vascular Congestion Colonic Mass -> CA S/P Ureteral stent placement S/P Laparoscopic colon resection. Hematuria -Pain control as needed -Wound care -Currently monitoring off ABX -O2 as needed to maintain saturation -ASA -Lovenox -PPI -Incentive Spirometry -Follow H&H -Full liquids and advance per surgery -Can likely D/C IVF in AM Dr Romero
--- NOTE | 2016-10-13 17:12 | PN ---
Progress Note, Physician Chief Complaint: Events noted Not in distress History of Present Illness: Patient was seen and examined. Awake and alert. Chart was reviewed Denies chest pain, SOB or palpitations Remains in sinus rhythm - Current Medication List Current Medications: Active Medications Albuterol Sulfate (Ventolin 0.083% Nebulizer Soln -) 1 amp NEB Q4H PRN PRN Reason: SHORT OF BREATH/WHEEZING Apixaban (Eliquis -) 5 mg PO BID [facility] Last Admin: 10/13/16 09:08 Dose: 5 mg Furosemide (Lasix Injection -) 20 mg IVPB DAILY [facility] Last Admin: 10/13/16 09:08 Dose: 20 mg Pantoprazole Sodium (Protonix 40mg Ivpb (Pre-Docked)) 100 mls @ 200 mls/hr IVPB DAILY [facility] Last Admin: 10/13/16 09:08 Dose: 200 mls/hr Potassium Chloride/Dextrose/Sod Cl (D5-1/2ns+10 Meq Kcl -) 1,000 mls @ 42 mls/ hr IV ASDIR [facility] Last Admin: 10/12/16 19:00 Dose: 42 mls/hr Metoprolol Tartrate (Lopressor -) 50 mg PO DAILY [facility] Last Admin: 10/13/16 09:08 Dose: 50 mg Metoprolol Tartrate (Lopressor Injection -) 5 mg IVPUSH Q4H PRN PRN Reason: HYPERTENSION Morphine Sulfate (Morphine Injection -) 3 mg IVPUSH Q3H PRN PRN Reason: PAIN Last Admin: 10/12/16 21:48 Dose: 3 mg Ramipril (Altace -) 2.5 mg PO DAILY [facility] Last Admin: 10/13/16 09:08 Dose: 2.5 mg - Objective Vital Signs: Vital Signs Temperature 98.3 F 10/13/16 14:51 Pulse Rate 83 10/13/16 14:51 Respiratory Rate 18 10/13/16 14:51 Blood Pressure 82/43 10/13/16 14:51 O2 Sat by Pulse Oximetry (%) 98 10/13/16 09:00 Neck: Yes: Supple Cardiovascular: Yes: Regular Rate and Rhythm, Murmur (Soft holosystolic murmur in LSB), S1, S2 Respiratory: Yes: Regular, CTA Bilaterally Gastrointestinal: Yes: Normal Bowel Sounds, Soft, Other (Post op - abdominal surgery). No: Tenderness Edema: No Additional Findings/Remarks: Review of Systems Constitutional: Denies: Chills or Fever Cardiovascular: As noted above Respiratory: As noted above Gastrointestinal: Denies: Nausea, Vomiting, Diarrhea, Constipation, abdominal pain, melena, hematemesis Genitourinary: No symptoms reported Neurology: No seizures or syncope Labs: CBC, BMP 10/13/16 05:35 10/13/16 05:35 Problem List - Problems (1) CAD (coronary artery disease) Code(s): I25.10 - ATHSCL HEART DISEASE OF [place] CORONARY ARTERY W/O ANG PCTRS Qualifiers: Coronary Disease-Associated Artery/Lesion type: [place] artery Associated angina: without angina (2) Demand ischemia Code(s): I24.8 - OTHER FORMS OF ACUTE ISCHEMIC HEART DISEASE (3) Moderate to severe mitral regurgitation Code(s): I34.0 - NONRHEUMATIC MITRAL (VALVE) INSUFFICIENCY (4) New onset atrial fibrillation Code(s): I48.91 - UNSPECIFIED ATRIAL FIBRILLATION (5) S/P colon resection Code(s): Z90.49 - ACQUIRED ABSENCE OF OTHER SPECIFIED PARTS OF DIGESTIVE TRACT (6) S/P coronary artery stent placement Code(s): Z95.5 - PRESENCE OF CORONARY ANGIOPLASTY IMPLANT AND GRAFT Assessment/Plan 1. Colon CA s/p resection with bladder involvement 2. CAD h/o PCI (Stent) post demand ischemia 3. Paroxysmal atrial fibrillation currently in sinus rhythm ([id number]) 4. Acute on chronic diastolic failure with moderate-severe MR improved 5. HTN/HCVD PLAN: 1. Troponins are trending down 2. Continue Eliquis 5 mg bid (age<80, Cr<1.5, weight<60 Kg) 3. Continue Lopressor 50 mg qd and Ramipril 2.5 mg qd with uptitration as hemodynamics tolerated 4. Follow pathology, given bladder involvement of tumor- further plans are to follow 5. Continue diuretics - consider PO Patient is to follow up with Dr. Nader Ospina, [facility] as outpatient Yuan Ríos MD
--- NOTE | 2016-10-13 19:15 | PN ---
Progress Note (short form) - Note Progress Note: surgery pt seen and examined. out of icu. tolerating some liquids. flatus. no bm. on nc at 4L 98% abd- soft, nt, incision clean, A/P 1) Pod#5- full liquids, d/c ivf, cont kostas, cont hardy, cont stent 2) prophylaxis- oob, spirometer, eliquis 3) htn/cad- switch to po meds 4) colon cancer- margins negative but close, 1 node positive 5) bladder involvement of tumor- will plan for discharge with catheter and outpt cystogram. will keep in over [address] Zimmer 6) afib- felt to be from diastolic chf mild fluid overload leading to demand ischemia- now in sinus. eliquis, lasix, stop ivf, all po meds
[2016-10-13] MEDS: morphine CARPU-JECT 4 MG/1 ML DISP.SYRIN IVPUSH PRN (22:11)
[2016-10-14 08:11] LABS: BASOPHIL 1.1 % (0-2.0); MCH 30.4 pg (25.7-33.7); MCHC 33.9 g/dl (32.0-36.0); MEAN CELL VOLUME 89.7 fl (80-96); MEAN PLT VOLUME 8.5 fl (7.5-11.1); NEUTROPHILS 67.2 % (42.8-82.8); RDW 13.6 % (11.6-15.6); WHITE BLOOD COUNT 5.6 K/mm3 (4.0-10.0)
[2016-10-14 09:01] LABS: ANION GAP 8 (8-16); CALCIUM 8.9 mg/dL (8.5-10.1); CO2 31 mmol/L (21-32); GLUCOSE,RANDOM 87 mg/dL (74-106); MAGNESIUM 2.1 mg/dL (1.8-2.4)
[2016-10-14 09:02] LABS: CREATININE 0.4 mg/dL (0.55-1.02); PHOSPHOROUS 3.4 mg/dL (2.5-4.9)
[2016-10-14] MEDS ORDERED: FUROSEMIDE 20 MG TABLET (FP) PO SCH (10:00)
--- NOTE | 2016-10-14 10:31 | PN ---
Progress Note (short form) - Note Progress Note: PULMONARY AWAKE/ALERT HAD BM/TOLERATING PO MEDINA IN PLACE DUE TO BLADDER INVOLVEMENT WANTS TO GO HOME REMAINS IN NSR RATE LESS THAN 100 SPO2 FLUCTUATING BELOW 87-92% ON O2 ANICTERIC DISTANT B/L BREATH SOUNDS S1S2 NSR BS+ SOFT NO EDEMA LABS/MEDS/NOTES/IMAGING REVIEWED CTA REVEALS -PE/ B/L effusions w compressive atelectasis/copd emphysematous type moderately severe Colon CA s/p resection with bladder involvement CAD h/o PCI (Stent) post demand ischemia Paroxysmal atrial fibrillation currently remains in sinus rhythm Acute on chronic diastolic failure with moderate-severe MR improved Likely chronic hypoxemic resp failure on basis of COPD Will need evaluation for home O2 prior to discharge Bronchodilators/repeat CXR Check ABG on R/A Continue Eliquis 5 mg bid Beta hung/demetris as per cardio Follow pathology Continue diuretics Will delay discharge from a pulmonary standpoint will speak with surgery Cardio f/u Srinivasan LAGUERRE MD
[2016-10-14] MEDS: RAMIPRIL 2.5 MG CAPSULE (FP) PO SCH (10:33)
[2016-10-14] MEDS: METOPROLOL TARTRATE 50 MG TABLET (FP) PO SCH (10:34)
[2016-10-14] MEDS: APIXABAN 2.5 MG TABLET PO SCH ×2 (10:34→22:03)
[2016-10-14 11:14] LABS: ARTERIAL BLD GAS O2 SATURATION 90.4 % (90-98.9); ARTERIAL BLOOD GAS BASE EXCESS 4.4 meq/l (-2-2); ARTERIAL BLOOD GAS HCO3 27.5 meq/L (22-26); ARTERIAL BLOOD GAS PO2 57.8 mmHg (70-100)
[2016-10-14 11:16] LABS: ALLENS TEST POSITIVE; ART PUNCT SITE LEFT RADIAL; LPM/O2% ROOM AIR; PT. ON O2? NO
[2016-10-14 11:17] LABS: ARTERIAL BLOOD GAS pH 7.49 (7.35-7.45)
[2016-10-14 11:38] LABS: PLATELET ESTIMATE ADEQUATE (NORMAL)
--- NOTE | 2016-10-14 11:47 | PN ---
Progress Note, Physician History of Present Illness: Had BM, no abd pain, remains in SR, denies chest pain or dyspnea. Hematuria has cleared. - Current Medication List Current Medications: Active Medications Albuterol Sulfate (Ventolin 0.083% Nebulizer Soln -) 1 amp NEB Q4H PRN PRN Reason: SHORT OF BREATH/WHEEZING Apixaban (Eliquis -) 5 mg PO BID [facility] Last Admin: 10/14/16 10:34 Dose: 5 mg Furosemide (Lasix -) 20 mg PO DAILY [facility] Last Admin: 10/14/16 10:33 Dose: 20 mg Metoprolol Tartrate (Lopressor -) 50 mg PO DAILY [facility] Last Admin: 10/14/16 10:34 Dose: 50 mg Metoprolol Tartrate (Lopressor Injection -) 5 mg IVPUSH Q4H PRN PRN Reason: HYPERTENSION Morphine Sulfate (Morphine Injection -) 3 mg IVPUSH Q3H PRN PRN Reason: PAIN Last Admin: 10/13/16 22:11 Dose: 3 mg Ramipril (Altace -) 2.5 mg PO DAILY [facility] Last Admin: 10/14/16 10:33 Dose: 2.5 mg Tiotropium [place] (Spiriva -) 1 puff IH DAILY [facility] - Objective Vital Signs: Vital Signs Temperature 99.4 F 10/14/16 10:26 Pulse Rate 97 H 10/14/16 10:26 Respiratory Rate 20 10/14/16 10:26 Blood Pressure 107/66 10/14/16 10:26 O2 Sat by Pulse Oximetry (%) 95 10/14/16 09:16 Constitutional: Yes: No Distress, Calm, Thin Neck: Yes: Supple Cardiovascular: Yes: Regular Rate and Rhythm, Murmur (2/6 SM) Respiratory: Yes: Regular, Diminished Gastrointestinal: Yes: Normal Bowel Sounds, Soft Edema: No Labs: CBC, BMP 10/14/16 06:40 10/14/16 06:40 Problem List - Problems (1) Atrial fibrillation Code(s): I48.91 - UNSPECIFIED ATRIAL FIBRILLATION Qualifiers: Atrial fibrillation type: paroxysmal Qualified Code(s): I48.0 - Paroxysmal atrial fibrillation (2) CAD (coronary artery disease) Code(s): I25.10 - ATHSCL HEART DISEASE OF [place] CORONARY ARTERY W/O ANG PCTRS Qualifiers: Coronary Disease-Associated Artery/Lesion type: [place] artery Associated angina: without angina (3) S/P colon resection Code(s): Z90.49 - ACQUIRED ABSENCE OF OTHER SPECIFIED PARTS OF DIGESTIVE TRACT (4) Demand ischemia Code(s): I24.8 - OTHER FORMS OF ACUTE ISCHEMIC HEART DISEASE (5) Acute on chronic diastolic (congestive) heart failure Code(s): I50.33 - ACUTE ON CHRONIC DIASTOLIC (CONGESTIVE) HEART FAILURE (6) Moderate to severe mitral regurgitation Code(s): I34.0 - NONRHEUMATIC MITRAL (VALVE) INSUFFICIENCY (7) S/P coronary artery stent placement Code(s): Z95.5 - PRESENCE OF CORONARY ANGIOPLASTY IMPLANT AND GRAFT (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 Colon CA s/p resection with bladder involvement Pod#6 2. CAD h/o PCI (Stent) post demand ischemia with no ischemia on pre-op MPI 3. Paroxysmal atrial fibrillation currently in SR ([id number]) on heparin gtt, ruled out for PE 4. Acute on chronic diastolic failure with mod-severe MR improved 5. HTN/HCVD 6. Chronic hypoxemic resp failure on basis of COPD PLAN: 1. Continue Eliquis 5 mg bid (age<80, Cr<1.5, weight<60 Kg) 2. Continue Lopressor 50 mg qd and Ramipril 2.5 mg qd with uptitration as hemodynamics tolerated 3. Follow pathology, given bladder involvement of tumor- further plans are to follow 4. Change Lasix 20 qd to Aldactone 25 qd, BD as needed 5. Patient is to follow up with Dr. Nader Ospina, [facility] as outpatient 6. Evaluation for home O2 ongoing
[2016-10-14] MEDS: TIOTROPIUM BROMIDE 18 MCG/INH (DEVICE W/ 5 CAPSULES) IH SCH (13:16)
[2016-10-14] MEDS ORDERED: PT OWN MED DRAWER 7, Y5N ONE (14:40)
[2016-10-15] MEDS ORDERED: PT OWN MED DRAWER 7, Y5N ONE (09:44)
[2016-10-15] MEDS ORDERED: SPIRONOLACTONE 25 MG TABLET (FP) PO SCH (10:00)
[2016-10-15] MEDS: APIXABAN 2.5 MG TABLET PO SCH (10:04)
[2016-10-15] MEDS: METOPROLOL TARTRATE 50 MG TABLET (FP) PO SCH (10:04)
[2016-10-15] MEDS: RAMIPRIL 2.5 MG CAPSULE (FP) PO SCH (10:04)
[2016-10-15] MEDS: TIOTROPIUM BROMIDE 18 MCG/INH (DEVICE W/ 5 CAPSULES) IH SCH (10:05)
--- NOTE | 2016-10-15 11:43 | PN ---
Progress Note, Physician History of Present Illness: Had BM, no abd pain, remains in SR, denies chest pain or dyspnea. Hematuria has cleared. - Current Medication List Current Medications: Active Medications Albuterol Sulfate (Ventolin 0.083% Nebulizer Soln -) 1 amp NEB Q4H PRN PRN Reason: SHORT OF BREATH/WHEEZING Apixaban (Eliquis -) 5 mg PO BID [facility] Last Admin: 10/15/16 10:04 Dose: 5 mg Metoprolol Tartrate (Lopressor -) 50 mg PO DAILY [facility] Last Admin: 10/15/16 10:04 Dose: 50 mg Metoprolol Tartrate (Lopressor Injection -) 5 mg IVPUSH Q4H PRN PRN Reason: HYPERTENSION Morphine Sulfate (Morphine Injection -) 3 mg IVPUSH Q3H PRN PRN Reason: PAIN Last Admin: 10/13/16 22:11 Dose: 3 mg Ramipril (Altace -) 2.5 mg PO DAILY [facility] Last Admin: 10/15/16 10:04 Dose: 2.5 mg Spironolactone (Aldactone -) 25 mg PO DAILY [facility] Last Admin: 10/15/16 10:04 Dose: 25 mg Tiotropium [place] (Spiriva -) 1 puff IH DAILY [facility] Last Admin: 10/15/16 10:05 Dose: 1 puff - Objective Vital Signs: Vital Signs Temperature 97.6 F 10/15/16 06:05 Pulse Rate 87 10/15/16 11:09 Respiratory Rate 20 10/15/16 06:05 Blood Pressure 107/45 10/15/16 06:05 O2 Sat by Pulse Oximetry (%) 94 L 10/15/16 11:09 Constitutional: Yes: No Distress, Calm, Thin Neck: Yes: Supple Cardiovascular: Yes: Regular Rate and Rhythm, Murmur (2/6 SM) Respiratory: Yes: Regular, Diminished, On Nasal O2 Gastrointestinal: Yes: Normal Bowel Sounds, Soft Edema: No Labs: CBC, BMP 10/14/16 06:40 10/14/16 06:40 - ....Imaging EKG: Report Reviewed (Tele: SR without recurrent PAF) Problem List - Problems (1) Atrial fibrillation Code(s): I48.91 - UNSPECIFIED ATRIAL FIBRILLATION Qualifiers: Atrial fibrillation type: paroxysmal Qualified Code(s): I48.0 - Paroxysmal atrial fibrillation (2) CAD (coronary artery disease) Code(s): I25.10 - ATHSCL HEART DISEASE OF [place] CORONARY ARTERY W/O ANG PCTRS Qualifiers: Coronary Disease-Associated Artery/Lesion type: [place] artery Associated angina: without angina (3) S/P colon resection Code(s): Z90.49 - ACQUIRED ABSENCE OF OTHER SPECIFIED PARTS OF DIGESTIVE TRACT (4) Demand ischemia Code(s): I24.8 - OTHER FORMS OF ACUTE ISCHEMIC HEART DISEASE (5) Acute on chronic diastolic (congestive) heart failure Code(s): I50.33 - ACUTE ON CHRONIC DIASTOLIC (CONGESTIVE) HEART FAILURE (6) Moderate to severe mitral regurgitation Code(s): I34.0 - NONRHEUMATIC MITRAL (VALVE) INSUFFICIENCY (7) S/P coronary artery stent placement Code(s): Z95.5 - PRESENCE OF CORONARY ANGIOPLASTY IMPLANT AND GRAFT (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 Colon CA s/p resection with bladder involvement Pod#7 2. CAD h/o PCI (Stent) post demand ischemia with no ischemia on pre-op MPI 3. Paroxysmal atrial fibrillation currently in SR ([id number]) on heparin gtt, ruled out for PE 4. Acute on chronic diastolic failure with mod-severe MR improved 5. HTN/HCVD 6. Chronic hypoxemic resp failure on basis of COPD PLAN: 1. Continue Eliquis 5 mg bid (age<80, Cr<1.5, weight<60 Kg) 2. Continue Lopressor 50 mg qd and Ramipril 2.5 mg qd with uptitration as hemodynamics tolerated 3. Follow pathology, given bladder involvement of tumor- further plans are to follow 4. Continue Aldactone 25 qd, BD as needed 5. Patient is to follow up with Dr. Nader Ospina, [facility] as outpatient 6. Evaluation for home O2 ongoing
--- NOTE | 2016-10-15 12:18 | PN ---
Progress Note (short form) - Note Progress Note: OOB to chair on NC O2. Tolerating PO intake. Mild cough. No acute events overnight. No CP. Intake & Output 10/12/16 10/13/16 10/14/16 10/15/16 23:59 23:59 23:59 23:59 Intake Total 800 564 710 Output Total 1872 1975 2400 350 Balance -1075 -3201 -1690 -350 Weight 123 lb Last Vital Signs Temp Pulse Resp BP Pulse Ox 97.8 F 94 H 20 108/58 98 10/15/16 10:00 10/15/16 12:01 10/15/16 10:00 10/15/16 10:00 10/15/16 12:01 Active Medications Albuterol Sulfate (Ventolin 0.083% Nebulizer Soln -) 1 amp NEB Q4H PRN PRN Reason: SHORT OF BREATH/WHEEZING Apixaban (Eliquis -) 5 mg PO BID [facility] Last Admin: 10/15/16 10:04 Dose: 5 mg Metoprolol Tartrate (Lopressor -) 50 mg PO DAILY [facility] Last Admin: 10/15/16 10:04 Dose: 50 mg Metoprolol Tartrate (Lopressor Injection -) 5 mg IVPUSH Q4H PRN PRN Reason: HYPERTENSION Morphine Sulfate (Morphine Injection -) 3 mg IVPUSH Q3H PRN PRN Reason: PAIN Last Admin: 10/13/16 22:11 Dose: 3 mg Ramipril (Altace -) 2.5 mg PO DAILY [facility] Last Admin: 10/15/16 10:04 Dose: 2.5 mg Spironolactone (Aldactone -) 25 mg PO DAILY [facility] Last Admin: 10/15/16 10:04 Dose: 25 mg Tiotropium [place] (Spiriva -) 1 puff IH DAILY [facility] Last Admin: 10/15/16 10:05 Dose: 1 puff Constitutional: Yes: Awake and alert, NAD Eyes: Yes: Conjunctiva Clear, PERRL HENT: Yes: Normocephalic Cardiovascular: Yes: Regular Rate and Rhythm, S1, S2, No: Gallop, Murmur, Rub Respiratory: Yes: scattered basilar rhonchi. No: Accessory Muscle Use Gastrointestinal: Yes: Soft (abdominal incisions c/d/i), Hypoactive Bowel Sounds , Tenderness Extremities: Yes: WNL Edema: No Peripheral Pulses WNL: Yes Integumentary: Yes: WNL Wound/Incision: Yes: Clean/Dry, Well Approximated, Sutures Intact, Open to air, Dressing Dry and Intact Neurological: Yes: Non-focal ...Motor Strength: WNL Psychiatric: Yes: WNL Labs: Problem List - Problems (1) S/P colon resection Code(s): Z90.49 - ACQUIRED ABSENCE OF OTHER SPECIFIED PARTS OF DIGESTIVE TRACT Assessment/Plan New AFib -> NSR PE ruled out Mild Pulmonary Vascular Congestion Colonic Mass -> CA S/P Ureteral stent placement S/P Laparoscopic colon resection. Hematuria -Will need home O2 at 3 L NC as she desaturated below 88% and became symptomatic while ambulating just a short distance -Wound care per surgery -ASA -Incentive Spirometry -PO as tolerated -D/C planning Dr Romero
--- NOTE | 2016-10-15 12:25 | PN ---
Progress Note (short form) - Note Progress Note: surgery pt seen and examined. still on O2. Tolerating diet. Discharge held by medial team yesterday. surgically well. abd- soft, nt A/P 1) Pod#6- regular diet. will cont kostas, cont hardy, cont stent 2) prophylaxis- oob, spirometer, eliquis 3) htn/cad- switch to po meds 4) colon cancer- margins negative but close, 1 node positive 5) bladder involvement of tumor- will plan for discharge with catheter and outpt cystogram. will keep in over [address] Zimmer 6) afib- felt to be from diastolic chf mild fluid overload leading to demand ischemia- now in sinus. eliquis, lasix, stop ivf, all po meds will discharge on 3l home 02. VNS. New rx eliquis, aldactone. resume metoprolol and ramipril. f/u with Dr. Zimmer next week after cystogram for hardy removal and staple removal. KOSTAS to be determined.
[2016-10-15 19:47] VITALS: BP 92/47; PULSE 89; TEMP 97.9
--- NOTE | 2016-10-17 11:04 | DS ---
DATE OF ADMISSION: 10/07/2016 DATE OF DISCHARGE: 10/15/2016 ADMITTING DIAGNOSES: Colon cancer with pre-existing congestive heart failure, chronic obstructive pulmonary disease, coronary artery disease, and hypertension. HISTORY: The patient was admitted on October 07. Underwent IV hydration and bowel preparation. On October 08, she underwent an uneventful laparoscopic low anterior resection. Please reference Dr. Nahid Zimmer's operative note for more details. Of note, she had a tumor that was stuck to her bladder and had preoperative Hernandez catheter and ureteral stents placed. Postoperatively, she went into atrial fibrillation. During this episode, her troponin enzymes were elevated. Cardiology evaluation was done by Dr. Saul Leon who felt that this was a demand ischemia, and her heart returned to sinus rhythm in less than 24 hours. She was started on Eliquis anticoagulation and kept in the intensive care unit. There, she was seen by critical care and manager sas, Dr. Romero. She developed what was felt to be an acute on chronic congestive heart failure, which led to strain, which caused the atrial fibrillation. She was started on initially Lasix and then eventually Aldactone diuretic. She also was placed on inhalers for COPD as well as oxygen. Surgically, she did well. She is being discharged home today, October 15, tolerating liquid diet, passing gas, and having bowel movement. Her abdomen is soft and nontender, and her incisions are well healed. She will go ahead with her Parveen-Myers drain as well as her Hernandez catheter and stent. She will have an outpatient cystogram done next week and then follow with Dr. Zimmer afterwards to be evaluated for Hernandez removal, stent removal, staple removal, and Parveen-Myers drain removal. She will have a new prescription for Eliquis as well as Aldactone, and she will resume her usual medications of ramipril, metoprolol, Crestor, Spiriva. She has a new prescription for albuterol nebulizer treatments as well. She will have visiting nurse services. She requiring home oxygen based on testing ordered by the manager sas and medical doctors, and will go home was obtained on 3 L of home oxygen. She is okay to shower. She is not lift anything more than 20 pounds. She will go home on a regular diet. DO ALYSIA MCKEON/[id number]
== END 2016-10-15 20:04 | disposition home health service (06) | DRG 329 ==
LOC: J8W 07:51 → JICU 10-08 17:06 → J4S 10-12 17:48
PROVIDERS: ADMIT Surgery; ATTEND Surgery
PROC: 0WBF4ZX Excision of Abdominal Wall, Percutaneous Endoscopic Approach, Diagnostic (ICD-10-PCS; 2016-10-08)
PROC: 0D7Q4ZZ Dilation of Anus, Percutaneous Endoscopic Approach (ICD-10-PCS; 2016-10-08)
PROC: 0DJD8ZZ Inspection of Lower Intestinal Tract, Via Natural or Artificial Opening Endoscopic (ICD-10-PCS; 2016-10-08)
PROC: 0T778DZ Dilation of Left Ureter with Intraluminal Device, Via Natural or Artificial Opening Endoscopic (ICD-10-PCS; 2016-10-08)
PROC: 3E1M38Z Irrigation of Peritoneal Cavity using Irrigating Substance, Percutaneous Approach (ICD-10-PCS; 2016-10-08)
PROC: 0DBN4ZZ Excision of Sigmoid Colon, Percutaneous Endoscopic Approach (ICD-10-PCS; principal; 2016-10-08 08:00)
PROC: 0TBB4ZX Excision of Bladder, Percutaneous Endoscopic Approach, Diagnostic (ICD-10-PCS; 2016-10-08 08:00)
PROC: 0UB94ZX Excision of Uterus, Percutaneous Endoscopic Approach, Diagnostic (ICD-10-PCS; 2016-10-08 08:00)
DX: C18.7 Malignant neoplasm of sigmoid colon (principal); I50.33 Acute on chronic diastolic (congestive) heart failure; I97.89 Other postprocedural complications and disorders of the circulatory system, not elsewhere classified; C77.2 Secondary and unspecified malignant neoplasm of intra-abdominal lymph nodes; I24.8 Other forms of acute ischemic heart disease; J96.11 Chronic respiratory failure with hypoxia; Y83.8 Other surgical procedures as the cause of abnormal reaction of the patient, or of later complication, without mention of misadventure at the time of the procedure; Y92.238 Other place in hospital as the place of occurrence of the external cause; I25.10 Atherosclerotic heart disease of native coronary artery without angina pectoris; I10 Essential (primary) hypertension; J44.9 Chronic obstructive pulmonary disease, unspecified; F41.8 Other specified anxiety disorders; M54.89 Other dorsalgia; R31.9 Hematuria, unspecified; I11.0 Hypertensive heart disease with heart failure; I34.0 Nonrheumatic mitral (valve) insufficiency; I48.0 Paroxysmal atrial fibrillation; E78.5 Hyperlipidemia, unspecified; Z87.891 Personal history of nicotine dependence; Z95.5 Presence of coronary angioplasty implant and graft
CPT/HCPCS: 36415; 36600; 71010-TC; 71260-TC; 76000-TC; 80048; 80053; 82550; 82553; 82803; 83735; 83880; 84100; 84484; 85025; 85027; 85730; 86850; 86900; 86901; 88305-TC; 88309-TC; 93005; 93010; 93306-TC; 94010; 94760; 94761; 97116-GP; 97161-GP; 97164-GP; J1644

== ENCOUNTER → 2016-10-21 | Day surgery (SDC) | payer OTHER, MEDICARE | END | disposition home or self-care (01) | LOC: JRADIR 10:14 | PROVIDERS: ATTEND Surgery | PROC: BT00YZZ Plain Radiography of Bladder using Other Contrast (ICD-10-PCS; principal; 2016-10-21) | DX: Z85.51 Personal history of malignant neoplasm of bladder (principal) | CPT/HCPCS: 51600; 74430-TC; 76000-TC ==

== ENCOUNTER 2017-02-07 08:48 | Emergency (ER) | payer OTHER, MEDICARE ==
--- NOTE | 2017-02-07 08:50 | PDOC ---
History of Present Illness - General Chief Complaint: Injury Stated Complaint: fall, fell on face Time Seen by Provider: 02/07/17 08:50 - History of Present Illness Initial Comments: 02/07/17 09:07 76yo female presents via medics for eval of a mechanical fall at [facility]. States she reached down for a newpaper and then packaging holding the pack of papers together got wrapped around her ankle. States she didn't realize this happened and when she turned to walk away she fell and hit her R knee and lip. Pt denies LOC. No blood thinners (no longer on elaquis). States she was able to get up and walk after the fall and ambulated to the stretcher for EMS. Pt denies neck or back pain. Lip abrasion bleeding controlled. Tetanus is UTD. Denies cuellar. No paresthesias or blurred vision. No weakness. No numbness. No cp/ sob/palpitations. NO abd pain. NO n/v/d. Denies dysuria. States was feeling at baseline state prior to fall. Pt denies all other complaints. 02/07/17 09:10 PMHx: hld, htn, colon ca on chemo (last infusion 10 days ago), hx of afib ( resolved - was post op) PSHx: port to R chest wall, colon resection Allergies: NKDA Past History - Past Medical History Allergies/Adverse Reactions: Allergies Allergy/AdvReac Type Severity Reaction Status Date / Time No Known Allergies Allergy Verified 10/07/16 10:32 Home Medications: Ambulatory Orders Rosuvastatin [Crestor -] 20 mg PO DAILY 10/07/16 Apixaban [Eliquis -] 5 mg PO BID #60 tablet 10/15/16 Ramipril [Altace] 2.5 mg PO DAILY #30 tab 10/15/16 Alprazolam 0.25 mg PO PRN PRN 02/07/17 Aspirin [ASA -] 81 mg PO DAILY 02/07/17 Ibuprofen 400 mg PO PRN PRN 02/07/17 Metoprolol Succinate [Toprol Xl] 50 mg PO DAILY 02/07/17 Anemia: Yes Cardiac Disorders: Yes (3 stents 10yrs ago) Hypercholesterolemia: Yes - Surgical History Orthopedic Surgery: Yes (back surgery) - Suicide/Smoking/Psychosocial Hx Smoking History: Former smoker Have you smoked in the past 12 months: No If you are a former smoker, when did you quit?: quit 20 yrs ago Hx Alcohol Use: No Drug/Substance Use Hx: No Substance Use Type: None Hx Substance Use Treatment: No Review of Systems - Review of Systems Able to Perform ROS?: Yes Is the patient limited [place] proficient: No Constitutional: No: Chills, Fever, Weakness HEENTM: No: Blurred Vision, Double Vision Respiratory: No: Cough, Shortness of Breath, Wheezing Cardiac (ROS): No: Chest Pain, Irregular Heart Rate, Lightheadedness, Palpitations ABD/GI: No: Abdominal Distended, Constipated, Diarrhea, Nausea, Vomiting : No: Burning, Dysuria Musculoskeletal: No: Back Pain, Neck Pain Integumentary: Yes: Other (lip contusion) Neurological: No: Headache, Numbness, Paresthesia, Tingling, Weakness, Unsteady Gait, Ataxia, Dizziness All Other Systems: Reviewed and Negative *Physical Exam - Vital Signs 02/07/17 09:17 Selected Entries 02/07/17 08:49 Temperature 98.4 F Pulse Rate 89 Respiratory 20 Rate Blood Pressure 142/70 Blood Pressure 94 Mean O2 Sat by Pulse 97 Oximetry (%) Weight 52.163 kg - Physical Exam General Appearance: Yes: Nourished, Appropriately Dressed, Other (anxious) HEENT: positive: EOMI, DINO, Symmetrical, Pharynx Normal, Other (abrasion to R upper lip - no laceration, no active bleeding, crack to R upper lateral incision - root and tooth intact) Neck: positive: Trachea midline, Normal Thyroid, Supple, Other (no midline ttp, no step offs or deformities). negative: Tender, Rigid, Decreased range of motion Respiratory/Chest: positive: Lungs Clear, Normal Breath Sounds, Respiratory Distress, Other (port a cath to R chest wall). negative: Chest Tender Cardiovascular: positive: Regular Rhythm, Regular Rate, S1, S2 Vascular Pulses: Dorsalis-Pedis (R): 2+, Doralis-Pedis (L): 2+ Gastrointestinal/Abdominal: positive: Normal Bowel Sounds, Flat, Soft. negative : Tender, Increased Bowel Sounds, Tenderness Musculoskeletal: positive: Other (abrasion with small amount of soft tissue swelling to R lateral knee) Extremity: positive: Normal Capillary Refill, Normal Range of Motion. 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 negative: Numbness, Sensory Deficit, Confused, Disoriented Medical Decision Making - Medical Decision Making 02/07/17 09:18 76yo female with mechanical fall -head ct -knee xray clean wounds reassess 02/07/17 10:[address] does not show any acute intracranial findings, knee xray - no acute fractures or pathology pt stable for d/c to home family at the bedside. Discussed use of a walker to assist with walking discussed all reasons to return to the ED answered all questions. Pt stable for d/c to home. *DC/Admit/Observation/Transfer Diagnosis at time of Disposition: Contusion, lip, Contusion, knee, Fall, Closed head injury - Discharge Dispostion Disposition: HOME Condition at time of disposition: Stable Admit: No - Referrals Referrals: Jaylen Quintana [Non Staff, Medical] - - Patient Instructions Printed Discharge Instructions: DI for Closed Head Injury, DI for Contusion Additional Instructions: Please follow up with your PMD in 2-3 days. Please apply topical antibiotic cream to the lip and knee. Please walk with a walker to prevent another fall. Please return to the ED with any further concerns. - Post Discharge Activity
[2017-02-07 09:14] VITALS: BP 142/70; PULSE 89; TEMP 98.4; BMI 19.1
[2017-02-07] MEDS ORDERED: DIPHTH,PERTUSS(ACELL),TET 0.5 ML DISP.SYRIN IM ONE (10:01)
== END 2017-02-07 10:26 | disposition home or self-care (01) ==
LOC: FER 08:48
PROC: 3E0234Z Introduction of Serum, Toxoid and Vaccine into Muscle, Percutaneous Approach (ICD-10-PCS; principal; 2017-02-07)
DX: S09.90XA Unspecified injury of head, initial encounter (principal); S00.531A Contusion of lip, initial encounter; S80.01XA Contusion of right knee, initial encounter; W01.0XXA Fall on same level from slipping, tripping and stumbling without subsequent striking against object, initial encounter; Y93.89 Activity, other specified; Y92.512 Supermarket, store or market as the place of occurrence of the external cause
CPT/HCPCS: 70450-TC; 73562-TC-RT; 90715; 99283-25

== ENCOUNTER 2022-09-20 13:59 | Emergency (ER) | payer OTHER, MEDICARE ==
[2022-09-20 14:27] VITALS: BP 127/74; PULSE 89; RESP 18; TEMP 97.8; BMI 21.2
[2022-09-20] MEDS ORDERED: LIDOCAINE 5% TOPICAL PATCH TP ONE (14:38)
[2022-09-20] MEDS ORDERED: METHOCARBAMOL 500 MG TABLET PO ONE (14:38)
[2022-09-20] MEDS ORDERED: METHOCARBAMOL 500 MG TABLET ONE (14:45)
[2022-09-20] MEDS ORDERED: LIDOCAINE 5% TOPICAL PATCH ONE (14:49)
[2022-09-20] MEDS ORDERED: LIDOCAINE PATCH REMOVAL MC SCH (22:00)
== END 2022-09-20 16:17 | disposition home or self-care (01) ==
LOC: FER 13:59
DX: M54.50 Low back pain, unspecified (principal)
CPT/HCPCS: 72100-TC-FY; 99283-25

== ENCOUNTER 2022-09-20 22:32 | Emergency (ER) | payer OTHER, MEDICARE ==
[2022-09-20 22:40] VITALS: BP 139/80; PULSE 74; RESP 18; TEMP 97.7; BMI 17.1
[2022-09-20] MEDS ORDERED: KETOROLAC TROMETHAMINE 30 MG/1 ML VIAL IM ONE (22:43)
[2022-09-20] MEDS ORDERED: METHOCARBAMOL 500 MG TABLET PO ONE (22:51)
[2022-09-20] MEDS ORDERED: predniSONE 20 MG TABLET (UD) PO ONE (22:51)
[2022-09-20] MEDS ORDERED: METHOCARBAMOL 500 MG TABLET ONE (22:53)
[2022-09-20] MEDS ORDERED: predniSONE 20 MG TABLET (UD) ONE (22:53)
[2022-09-20] MEDS ORDERED: KETOROLAC TROMETHAMINE 30 MG/1 ML VIAL ONE (22:54)
== END 2022-09-21 00:13 | disposition home or self-care (01) ==
LOC: FER 22:32
PROC: 3E0233Z Introduction of Anti-inflammatory into Muscle, Percutaneous Approach (ICD-10-PCS; principal; 2022-09-20)
DX: M54.50 Low back pain, unspecified (principal); G89.29 Other chronic pain
CPT/HCPCS: 99284-25

== ENCOUNTER 2022-09-27 09:47 | Emergency (ER) | payer OTHER, MEDICARE ==
[2022-09-27 09:58] VITALS: BP 128/65; RESP 18; TEMP 97.6; BMI 17.1
[2022-09-27] MEDS ORDERED: LIDOCAINE 5% TOPICAL PATCH TP ONE (12:33)
[2022-09-27] MEDS ORDERED: LIDOCAINE 5% TOPICAL PATCH ONE (12:37)
[2022-09-27 13:05] LABS: HEMATOCRIT 37.9 % (32.4-45.2); HEMOGLOBIN 12.9 G/dL (10.7-15.3); MCH 31.8 pg (25.7-33.7); MCHC 33.9 g/dl (32.0-36.0); MEAN CELL VOLUME 93.6 fl (80-96); MEAN PLT VOLUME 8.2 fl (7.5-11.1); PLATELET COUNT 263.7 10^3/uL (134-434); RBC 4.05 10^6/uL (3.60-5.2); RDW 13.2 % (11.6-15.6); WHITE BLOOD COUNT 6.9 10^3/uL (4.0-10.8)
[2022-09-27 13:20] LABS: ALBUMIN 3.7 g/dl (3.4-5.0); BILIRUBIN,TOTAL 0.5 mg/dl (0.2-1); BLOOD UREA NITROGEN 11.4 mg/dl (7-18); CALCIUM 9.5 mg/dl (8.5-10.1); CREATININE 0.6 mg/dl (0.6-1.3); POTASSIUM 4.2 mmol/L (3.5-5.1); SGOT/AST 21.7 U/L (15-37); SGPT/ALT 18.1 U/L (7-52); TOT PROT 5.8 g/dl (6.4-8.2)
[2022-09-27 14:06] VITALS: PULSE 64
[2022-09-27] MEDS ORDERED: LIDOCAINE PATCH REMOVAL MC SCH (22:00)
== END 2022-09-27 14:18 | disposition home or self-care (01) ==
LOC: FER 09:47
DX: M54.9 Dorsalgia, unspecified (principal); F03.90 Unspecified dementia, unspecified severity, without behavioral disturbance, psychotic disturbance, mood disturbance, and anxiety
CPT/HCPCS: 36415; 70450-TC; 74176-TC; 80053; 80307; 81003; 83690; 84443; 84484; 85027; 87086; 93005; 99285-25

== ENCOUNTER 2022-10-23 05:14 | Day surgery (SDC) | payer OTHER, MEDICARE ==
[2022-10-16 09:07] VITALS: BMI 18.8
[~2022-10-23 05:14] MED LIST: ACETAMINOPHEN 500 MG TABLET (FP) PO PRN
[2022-10-23] MEDS ORDERED: BUPIVACAINE HCL/PF 0.75% 10 ML VIAL ONE (07:46)
[2022-10-23] MEDS ORDERED: LIDOCAINE HCL/PF 1% SDV 5ML VIAL ONE (07:46)
[2022-10-23 11:53] VITALS: RESP 20
[2022-10-23] MEDS ORDERED: BUPIVACAINE HCL/PF 0.75% 10 ML VIAL NR ONE (13:32)
[2022-10-23] MEDS ORDERED: LIDOCAINE HCL 1% PRESERVATIVE FREE - 30ML VIAL INF ONE (13:32)
[2022-10-23 13:51] VITALS: BP 123/68; PULSE 81; TEMP 97
[2022-10-23] MEDS ORDERED: ACETAMINOPHEN 500 MG TABLET (FP) PO PRN (16:17)
== END 2022-10-23 14:44 | disposition home or self-care (01) ==
LOC: JASU-SURG 05:14
PROVIDERS: ATTEND Pain Medicine Pain Medicine
PROC: 3E0T33Z Introduction of Anti-inflammatory into Peripheral Nerves and Plexi, Percutaneous Approach (ICD-10-PCS; 2022-10-23)
PROC: 3E0T3BZ Introduction of Anesthetic Agent into Peripheral Nerves and Plexi, Percutaneous Approach (ICD-10-PCS; principal; 2022-10-23 13:30)
DX: M47.816 Spondylosis without myelopathy or radiculopathy, lumbar region (principal)
CPT/HCPCS: 76000-TC-FY

== ENCOUNTER 2023-02-26 04:26 | Day surgery (SDC) | payer OTHER, MEDICARE ==
[2023-02-25 11:00] VITALS: BMI 18.8
[2023-02-26] MEDS ORDERED: BUPIVACAINE HCL/PF 0.75% 10 ML VIAL ONE (07:37)
[2023-02-26] MEDS ORDERED: LIDOCAINE HCL/PF 1% SDV 5ML VIAL ONE (07:37)
[2023-02-26] MEDS ORDERED: BUPIVACAINE 0.75% IN DEXTROSE/PF 2ML AMPULE NR ONE (08:01)
[2023-02-26] MEDS ORDERED: LIDOCAINE HCL 1% PRESERVATIVE FREE - 30ML VIAL IJ ONE ×2 (08:03→10:55)
[2023-02-26] MEDS ORDERED: BUPIVACAINE HCL/PF 0.75% 10 ML VIAL NR ONE (10:55)
[2023-02-26 11:33] VITALS: RESP 16
[2023-02-26 12:26] VITALS: BP 141/76; PULSE 80; TEMP 98.4
[2023-02-26] MEDS ORDERED: ACETAMINOPHEN 500 MG TABLET (FP) PO PRN (15:00)
== END 2023-02-26 12:25 | disposition home or self-care (01) ==
LOC: JASU-SURG 04:26
PROVIDERS: ATTEND Pain Medicine Pain Medicine
PROC: 3E0T33Z Introduction of Anti-inflammatory into Peripheral Nerves and Plexi, Percutaneous Approach (ICD-10-PCS; 2023-02-26)
PROC: 3E0T3BZ Introduction of Anesthetic Agent into Peripheral Nerves and Plexi, Percutaneous Approach (ICD-10-PCS; principal; 2023-02-26 10:45)
DX: M47.816 Spondylosis without myelopathy or radiculopathy, lumbar region (principal)
CPT/HCPCS: 76000-TC-FY

== ENCOUNTER 2023-04-10 12:10 | Inpatient (IN) | payer OTHER, MEDICARE ==
[2023-04-10] MEDS ORDERED: ACETAMINOPHEN 325 MG TABLET (FP) PO ONE (14:39)
[2023-04-10] MEDS ORDERED: ACETAMINOPHEN 325 MG TABLET (FP) ONE (15:01)
[2023-04-10] MEDS ORDERED: ACETAMINOPHEN 500 MG TABLET (FP) PO PRN (15:35)
[2023-04-10] MEDS: CHOLECALCIFEROL (VIT D3) 5000 UNITS (125 MCG) CAP PO SCH (16:30)
[2023-04-10 16:32] LABS: HEMOGLOBIN 13.1 G/dL (10.7-15.3); MCH 32.8 pg (25.7-33.7); MCHC 34.5 g/dl (32.0-36.0); MEAN PLT VOLUME 8.1 fl (7.5-11.1); PLATELET COUNT 274.4 10^3/uL (134-434); RDW 13.4 % (11.6-15.6); WHITE BLOOD COUNT 9.5 10^3/uL (4.0-10.8)
[2023-04-10 16:36] LABS: ALBUMIN 3.8 g/dl (3.4-5.0); BILIRUBIN,TOTAL 0.5 mg/dl (0.2-1); CALCIUM 9.8 mg/dl (8.5-10.1); CREATININE 0.5 mg/dl (0.6-1.3); POTASSIUM 4.2 mmol/L (3.5-5.1); TOT PROT 6.2 g/dl (6.4-8.2)
[2023-04-10 17:46] VITALS: BMI 19.0
[2023-04-10] MEDS: QUEtiapine FUMARATE 25 MG TABLET PO SCH (21:34)
[2023-04-10] MEDS: ROSUVASTATIN CA 20 MG TABLET PO SCH (21:34)
[2023-04-10] MEDS: DONEPEZIL HCL 5 MG TABLET (FP) PO SCH (21:34)
[2023-04-10] MEDS: HEPARIN NA (PORCINE) 5,000 UNITS/ML 1ML VIAL SQ SCH (21:34)
[2023-04-11] MEDS: LEVOTHYROXINE NA 50 MCG TABLET (FP) PO SCH (06:54)
[2023-04-11] MEDS: FAMOTIDINE 20 MG TABLET PO SCH (09:18)
[2023-04-11] MEDS: HEPARIN NA (PORCINE) 5,000 UNITS/ML 1ML VIAL SQ SCH ×2 (09:19→21:20)
[2023-04-11 10:33] LABS: ALBUMIN 3.3 g/dl (3.4-5.0); BILIRUBIN,TOTAL 0.6 mg/dl (0.2-1); CALCIUM 9.3 mg/dl (8.5-10.1); CREATININE 0.5 mg/dl (0.6-1.3); TOT PROT 5.5 g/dl (6.4-8.2)
[2023-04-11 11:02] LABS: BASO % 0.7 % (0-2.0); EOS % 3.4 % (0-4.5); HEMATOCRIT 36.1 % (32.4-45.2); HEMOGLOBIN 12.2 GM/dL (10.7-15.3); LYMPH % 14.3 % (8-40); MCH 31.2 pg (25.7-33.7); MCHC 33.8 g/dl (32.0-36.0); MEAN CELL VOLUME 92.5 fl (80-96); MEAN PLT VOLUME 8.2 fl (7.5-11.1); MONO % 5.7 % (3.8-10.2); NEUT % 75.9 % (42.8-82.8); PLATELET COUNT 287 10^3/uL (134-434); RDW 13.1 % (11.6-15.6); WHITE BLOOD COUNT 8.4 K/mm3 (4.0-10.0)
[2023-04-11] MEDS: QUEtiapine FUMARATE 25 MG TABLET PO SCH (21:20)
[2023-04-11] MEDS: DONEPEZIL HCL 5 MG TABLET (FP) PO SCH (21:20)
[2023-04-11] MEDS: ROSUVASTATIN CA 20 MG TABLET PO SCH (21:20)
[2023-04-12] MEDS: LEVOTHYROXINE NA 50 MCG TABLET (FP) PO SCH (06:30)
[2023-04-12] MEDS: CHOLECALCIFEROL (VIT D3) 5000 UNITS (125 MCG) CAP PO SCH (07:21)
[2023-04-12 08:28] LABS: ALBUMIN 3.2 g/dl (3.4-5.0); BILIRUBIN,TOTAL 0.5 mg/dl (0.2-1); CALCIUM 9.4 mg/dl (8.5-10.1); CREATININE 0.5 mg/dl (0.6-1.3); TOT PROT 5.3 g/dl (6.4-8.2)
[2023-04-12] MEDS: CHOLECALCIFEROL (VIT D3) 1,000 UNIT (25 MCG) TABLET PO SCH (09:35)
[2023-04-12] MEDS: FAMOTIDINE 20 MG TABLET PO SCH (09:35)
[2023-04-12] MEDS: HEPARIN NA (PORCINE) 5,000 UNITS/ML 1ML VIAL SQ SCH ×2 (09:35→21:14)
[2023-04-12] MEDS: ROSUVASTATIN CA 20 MG TABLET PO SCH (21:14)
[2023-04-12] MEDS: QUEtiapine FUMARATE 25 MG TABLET PO SCH (21:14)
[2023-04-12] MEDS: DONEPEZIL HCL 5 MG TABLET (FP) PO SCH (21:15)
[2023-04-12 22:48] VITALS: RESP 18
[2023-04-13] MEDS: LEVOTHYROXINE NA 50 MCG TABLET (FP) PO SCH (06:36)
[2023-04-13] MEDS: FAMOTIDINE 20 MG TABLET PO SCH (10:20)
[2023-04-13] MEDS: CHOLECALCIFEROL (VIT D3) 1,000 UNIT (25 MCG) TABLET PO SCH (10:20)
[2023-04-13] MEDS: HEPARIN NA (PORCINE) 5,000 UNITS/ML 1ML VIAL SQ SCH (10:20)
[2023-04-13 14:18] VITALS: BP 134/74; PULSE 100; TEMP 97.3
== END 2023-04-13 16:47 | DRG 562 ==
LOC: FER 12:10 → FM/S 15:14
PROVIDERS: ATTEND Internal Medicine
DX: S92.352A Displaced fracture of fifth metatarsal bone, left foot, initial encounter for closed fracture (principal); E43 Unspecified severe protein-calorie malnutrition; Z68.1 Body mass index [BMI] 19.9 or less, adult; E78.00 Pure hypercholesterolemia, unspecified; R26.81 Unsteadiness on feet; M62.81 Muscle weakness (generalized); G30.9 Alzheimer's disease, unspecified; F02.80 Dementia in other diseases classified elsewhere, unspecified severity, without behavioral disturbance, psychotic disturbance, mood disturbance, and anxiety; K21.9 Gastro-esophageal reflux disease without esophagitis; E03.9 Hypothyroidism, unspecified; E78.5 Hyperlipidemia, unspecified; M81.0 Age-related osteoporosis without current pathological fracture; I10 Essential (primary) hypertension; F39 Unspecified mood [affective] disorder; W18.39XA Other fall on same level, initial encounter; Y92.098 Other place in other non-institutional residence as the place of occurrence of the external cause; Y99.9 Unspecified external cause status
CPT/HCPCS: 36415; 73610-TC-LT-FY; 73630-TC-LT; 80053; 81003; 85025; 85027; 87635; 93005; 97116-GP; 97162-GP; 99285-25; J1644